=== PATIENT | female | born 1985 | race Caucasian/White ===

== ENCOUNTER → 2017-12-08 14:48 | Outpatient (CLI) | payer OTHER, SELFPAY ==
[2017-12-08 17:42] LABS: hCG Titer Quant., Serum 47 mIU/mL (<9 non-preg)
[2017-12-08 20:39] LABS: T4 Free Direct 1.01 ng/dL (0.76-1.46); Thyroid Stim Hormone (TSH) 1.28 uIU/mL (0.358-3.74)
== END ==
PROVIDERS: Family Provider Nurse Practitioner Family; PCP Nurse Practitioner Family; Visit Provider Obstetrics & Gynecology
DX: E01.0 Iodine-deficiency related diffuse (endemic) goiter (principal); O20.0 Threatened abortion; Z3A.00 Weeks of gestation of pregnancy not specified
CPT/HCPCS: 36415; 84439; 84443; 84702

== ENCOUNTER → 2017-12-10 09:37 | Outpatient (CLI) | payer OTHER, SELFPAY ==
[2017-12-10 10:41] LABS: hCG Titer Quant., Serum 21 mIU/mL (<9 non-preg)
== END ==
PROVIDERS: Family Provider Nurse Practitioner Family; PCP Nurse Practitioner Family; Visit Provider Obstetrics & Gynecology
DX: O20.0 Threatened abortion (principal); Z3A.00 Weeks of gestation of pregnancy not specified
CPT/HCPCS: 36415; 84702; 86850; 86900

== ENCOUNTER 2018-03-02 11:13 | Emergency (ER) | payer MEDICAID, SELFPAY ==
[2018-03-02 11:14] VITALS: BP 141/83; PULSE 97; RESP 16; TEMP 36.9; O2SAT 99; BMI 26.6
--- NOTE | 2018-03-02 11:45 | US_ITS ---
STUDY: FIRST TRIMESTER OBSTETRICAL ULTRASOUND REASON FOR EXAM: Female, 32 years old. 2 day history of a bleeding during . LMP: January 18, 2018. TECHNIQUE: Transvaginal PRIOR ULTRASOUND: None. FINDINGS: There is no demonstrated intrauterine gestational sac. There is no demonstrated yolk sac. The placenta is non-visualized. There is no demonstrated embryo ( pole). The estimated gestation age (EGA) by LMP is 6 weeks, 1 days. The estimated date of delivery (NARCISA) by LMP is October 25, 2018. The uterus measures 8.4 cm x 4.6 times by 3.9 cm. There is no demonstrated uterine fibroid. The cervix is closed. The right ovary measures 2.7 cm x 2.6 cm x 1.6 cm. There is no right ovarian cyst. There is no visualized right adnexal mass or complex lesion. The left ovary measures 2.4 cm x 2.3 cm x 1.5 cm. There is no left ovarian cyst. There is no visualized left adnexal mass or complex lesion. There is minimal fluid in the cul de sac. US/Transvaginal w/Preg US IMPRESSION: No intrauterine gestational sac is seen. Minimal fluid in the cul-de-sac. Correlation with serial beta hCGs recommended for further evaluation. Electronically Signed: Mele Angel MD at 13:26 EDT Tel [phone], Service support ,
--- NOTE | 2018-03-02 11:51 | ED.VISSUMM ---
- ER Visit Summary Date of Service: 03/02/18 Chief Complaint: Vaginal bleeding History of Present Illness: The patient is a 32 F whose last menstrual cycle was January 18. She believes she is approximate 6 weeks . She has not yet seen an [facility] and is scheduled for an appointment today. Patient states she had some mild spotting yesterday with heavier bleeding today. She is passing some clots. She reports waxing and waning cramping in the right lower quadrant over the past week. Patient did have a miscarriage in November when she was approximately 7 weeks along. On review of hospital records blood type is A+. Physical Examination: Vital signs are unremarkable. Patient sitting upright in bed no acute distress. Head neck examination is normal. Heart is regular rate and rhythm. Lung sounds are clear. Abdomen is soft with mild tenderness in the right lower quadrant. There is no guarding or rebound. She has no tenderness over the upper abdomen. Test Results: CBC and chemistry studies are unremarkable. Hemoglobin is 15.6. Urinalysis shows 25-50 white blood cells 25-50 RBCs. Her hCG quant is 16. Transvaginal ultrasound shows no evidence of intrauterine gestational sac. There is minimal fluid in the cul-de-sac. No adnexal masses are noted. Emergency Department Course and Treatment: Patient is given IV fluids here. Test results were discussed with her. At this point I believe she has either miscarried or is earlier in her than anticipated. I spoke with Dr. Dove, on-call for Dr. Luz. We will write an order for an outpatient lab draw in 2 days. Patient is to call the office for follow-up. If she has increased pain or heavier bleeding she is to return for repeat evaluation. Treatment Plan: [] Disposition: Discharge Impression: Threatened AB This note was generated with [employer] dictation software. It may contain incorrect words, spelling, and punctuation that were not noted in review of the chart prior to signing ED Disposition - Plan for ED Patient: Chief Complaint: Vag Bld, Preg Referrals: Leeann Alexander NP-C [Primary Care Provider] -
[2018-03-02 12:02] LABS: Mucous, Urine 0 SEEN /hpf (<or=2+)
[2018-03-02 12:04] LABS: Color, Urine Yellow (Yellow); Glucose, Dipstick Normal (Normal); Ketone-Dipstick Negative (Negative); Leukocyte Esterase-Dipstick 500 /ul (Negative); Nitrite-Dipstick Negative (Negative); Occult Blood-Urine 250 /ul (Negative); Protein-Dipstick 30 mg/dl (Negative); Specific Gravity, Urine 1.005 (1.002-1.030); Urine Bilirubin Dipstick Negative (Negative); Urine Clarity Sl. Cloudy (Clear); Urine Urobilinogen Normal (Normal); Urine pH 6.5 (5.0 - 8.0)
[2018-03-02 12:15] LABS: Red Blood Cells-Urine 25-50 SEEN /hpf (0-5); Squamous Epithelial Cells - UA 0-5 SEEN /hpf (5-10); White Blood Cells 25-50 SEEN /hpf (0-5)
[2018-03-02 12:16] LABS: Bacteria 1+ /hpf (None Seen)
[2018-03-02 12:16] LABS: Absolute Lymphocyte Count 2.06 X10^3/ul (0.83-4.51); Absolute Neutrophil Count 6.3 X10^3/uL (2.0-7.7); Basophil# 0.01 X10^3/uL; Basophil% 0.1 % (0-1); Eosinophil# 0.09 X10^3/uL; Hematocrit 45.6 % (37-47); Hemoglobin 15.6 g/dl (12.0-15.0); Lymphocyte # 2.06 X10^3/ul (4.0); Lymphocyte % 22.5 % (19-41); Mean Corp Hgb Conc 34.2 g/gl (32-36); Mean Corpuscular Volume 93.6 fL (81-99); Mean Platelet Vol. 10.1 fl (6.2-12.0); Monocyte# 0.67 X10^3/uL; Monocyte% 7.3 % (0-10); Platelet Count 255 K/mm3 (150-450); RBC Distribution Width CV 12.7 % (11.6-14.6); RBC Distribution Width SD 43.4 fl (35.1-43.9); Red Blood Count 4.87 M/mm3 (4.2-5.4); White Blood Count 9.1 K/mm3 (4.4-11.0)
[2018-03-02 12:19] LABS: POSITIVE COUNT NO; POSITIVE DIFFERENTIAL NO; POSITIVE MORPHOLOGY NO
[2018-03-02] MEDS: 0.9% Normal Saline 1,000 ML 150 ML IV (12:21)
[2018-03-02 12:28] LABS: Anion Gap 11 (5-15); BUN 7 mg/dL (7-18); BUN/Creat Ratio 8.7 RATIO (10-20); Chloride 103 mmol/L (98-107); Creatinine, Serum 0.81 mg/dL (0.55-1.02); EST Glomerular Filtration Rate 87 mL/min (>60); Est Glom Filt Rate - Afr Amer 105 mL/min (>60); Estimated Creatinine Clearance 93.34 ml/min; Glucose 90 mg/dL (74-106); Potassium 3.6 mmol/L (3.5-5.1); Sodium Level 140 mmol/L (136-145)
[2018-03-02 12:41] LABS: hCG Titer Quant., Serum 16 mIU/mL (<9 non-preg)
--- NOTE | 2018-03-02 14:11 | ED.DEP ---
ED Disposition - Plan for ED Patient: Disposition: Home or Assisted Living Chief Complaint: Vag Bld, Preg Instructions: ED Miscarriage Poss Referrals: Gee Luz MD [STAFF PHYSICIAN] - 1 Week Additional Instructions: Have repeat labs drawn on 03/04 as discussed.
[2018-03-02 14:27] VITALS: BP 128/70; PULSE 70; RESP 18; O2SAT 98
== END 2018-03-02 14:36 | disposition home or self-care (01) ==
PROVIDERS: Emergency Provider Emergency Medicine; Family Provider Nurse Practitioner Family; PCP Nurse Practitioner Family
DX: O20.0 Threatened abortion (principal); Z3A.01 Less than 8 weeks gestation of pregnancy; Z72.0 Tobacco use
CPT/HCPCS: 76817; 80048; 81001; 84702; 85025; 99284; J7030; A4216

== ENCOUNTER → 2018-03-04 07:04 | Outpatient (CLI) | payer MEDICAID, SELFPAY ==
[2018-03-04 07:55] LABS: hCG Titer Quant., Serum 6 mIU/mL (<9 non-preg)
== END ==
PROVIDERS: Family Provider Nurse Practitioner Family; PCP Nurse Practitioner Family; Visit Provider Emergency Medicine
DX: O20.0 Threatened abortion (principal)
CPT/HCPCS: 36415; 84702

== ENCOUNTER → 2018-04-19 11:46 | Outpatient (CLI) | payer MEDICAID, SELFPAY ==
[2018-04-23 12:05] LABS: HPV Reflexed? NOT INDICATED
== END ==
PROVIDERS: Visit Provider Obstetrics & Gynecology
DX: Z12.4 Encounter for screening for malignant neoplasm of cervix (principal); Z12.72 Encounter for screening for malignant neoplasm of vagina
CPT/HCPCS: 88175; G0145

== ENCOUNTER → 2018-09-22 14:52 | Outpatient (CLI) | payer MEDICAID, SELFPAY ==
[2018-09-22 16:13] LABS: hCG Titer Quant., Serum 34 mIU/mL (<9 non-preg)
[2018-09-22 18:01] LABS: Chlamydia Trachomatis by PCR Negative (Negative); Neisserai gonorrhoeae by PCR Negative (Negative); Probe Check PASS; Sample Adequacy Control PASS; Specimen Processing Control PASS
== END ==
PROVIDERS: Visit Provider Obstetrics & Gynecology
DX: Z11.3 Encounter for screening for infections with a predominantly sexual mode of transmission (principal); Z32.01 Encounter for pregnancy test, result positive
CPT/HCPCS: 36415; 84702; 87491; 87591

== ENCOUNTER → 2018-09-24 14:23 | Outpatient (CLI) | payer MEDICAID, SELFPAY ==
[2018-09-24 14:54] LABS: hCG Titer Quant., Serum 18 mIU/mL (<9 non-preg)
== END ==
PROVIDERS: Visit Provider Obstetrics & Gynecology
DX: Z32.01 Encounter for pregnancy test, result positive (principal)
CPT/HCPCS: 36415; 84702

== ENCOUNTER → 2018-10-15 09:13 | Outpatient (CLI) | payer MEDICAID, SELFPAY ==
[2018-10-15 11:17] LABS: hCG Titer Quant., Serum 86 mIU/mL (<9 non-preg)
== END ==
PROVIDERS: Visit Provider Obstetrics & Gynecology
DX: O02.1 Missed abortion (principal)
CPT/HCPCS: 36415; 84702

== ENCOUNTER → 2018-10-18 09:00 | Outpatient (CLI) | payer MEDICAID, SELFPAY ==
[2018-10-18 11:14] LABS: hCG Titer Quant., Serum 105 mIU/mL (<9 non-preg)
== END ==
PROVIDERS: Visit Provider Obstetrics & Gynecology
DX: O02.1 Missed abortion (principal)
CPT/HCPCS: 36415; 84702

== ENCOUNTER → 2018-10-21 09:34 | Outpatient (CLI) | payer MEDICAID, SELFPAY ==
[2018-10-21 12:00] LABS: hCG Titer Quant., Serum 86 mIU/mL (<9 non-preg)
== END ==
PROVIDERS: Visit Provider Obstetrics & Gynecology
DX: O02.1 Missed abortion (principal)
CPT/HCPCS: 36415; 84702

== ENCOUNTER → 2018-10-28 09:51 | Outpatient (CLI) | payer MEDICAID, SELFPAY ==
[2018-10-28 14:07] LABS: hCG Titer Quant., Serum 34 mIU/mL (<9 non-preg)
== END ==
PROVIDERS: Visit Provider Obstetrics & Gynecology
DX: O02.1 Missed abortion (principal)
CPT/HCPCS: 36415; 84702

== ENCOUNTER 2018-11-06 07:08 | Emergency (ER) | payer MEDICAID, SELFPAY ==
[2018-11-06 07:09] VITALS: BP 144/79; PULSE 101; RESP 16; TEMP 36.1; O2SAT 98; BMI 29.7
--- NOTE | 2018-11-06 07:24 | CT_ITS ---
STUDY: CT ABDOMEN AND PELVIS WITHOUT CONTRAST REASON FOR EXAM: Female, 33 years old. Pelvic pressure/right pelvic pain. Miscarriage 1 week ago. History of von Willebrand's bleeding disorder. RADIATION DOSAGE (If Supplied By Facility): CTDIvol = ( 14.93 ) mGy, DLP = ( 790.99 ) mGycm TECHNIQUE: Transaxial images were obtained from the dome of the diaphragm to the symphysis pubis without oral contrast, and without intravenous contrast. Sagittal and coronal images were reconstructed. Individualized dose optimization techniques were used for this CT. COMPARISON: Prior comparison studies are not available for review at this time. FINDINGS: The visualized lung bases are unremarkable. The visualized portions of the heart are within normal limits. Normal liver. The portal vein diameter is 14 mm. The gallbladder is contracted. The common bile duct diameter is 4.5 mm. Normal spleen. Normal pancreas. Normal bilateral adrenal glands. Normal right kidney. Normal left kidney. No hydronephrosis. Normal visualized stomach. Normal small intestine. Normal colon. There is non-visualization of the appendix. Normal abdominal aorta. Normal inferior vena cava. Normal retroperitoneum. Normal urinary bladder. Normal visualized uterus. Endometrial thickness is approximately 8.5 mm. Heterogeneous density in the ovaries consistent with normal follicular cysts. Possible 1.3 cm dominant follicular cyst in the right ovary (series 2 image 146 and 1.3 cm dominant follicular cyst on the left (series 2 image 152). Some mild hyperdensity along the posterior margin of the right adnexa may be volume averaging, but localized hemorrhage or small volume hemoperitoneum difficult to exclude. Normal abdominal wall. Normal osseous structures. CT/Abdomen/Pelvis without Cont IMPRESSION: There are follicular cysts in the bilateral ovaries, with possible dominant follicles as noted. Hyperdensity along the posterior margin of the right adnexa may be volume averaging, but local hemorrhage or very small volume hemoperitoneum difficult to exclude. If clinically suspicious, this could be further characterized with pelvic ultrasound. Electronically Signed: Nikolai Fields MD at 8:29 EST , Service support ,
--- NOTE | 2018-11-06 07:25 | ED.VISSUMM ---
- ER Visit Summary Date of Service: 11/06/18 Chief Complaint: [] Sharp stabbing intermittent right flank pain for 3 days History of Present Illness: The patient is a 33 F [] she reports she is been having a miscarriage for a week she is now not having really any significant vaginal bleeding just intermittent spotting she has been seen by her medical officer psychiatry that process is stable, she indicates for the last 3 days unrelated to the above she believes she is having a sharp intermittent pain to the right flank, nothing makes it better or worse nothing triggers it she has had normal bowel bladder habits. She has no history of kidney stone UTI she does have a very distant history for ovarian cysts vomited once today no fever no cough no anorexia Physical Examination: [] Normal vital signs afebrile see the note General, no distress resting comfortably no real symptoms now HEENT is generally unremarkable The neck is supple no adenopathy Cardiovascular, regular rate and rhythm Lungs, clear bilateral Abdomen, soft nontender, when she gets the pain has a vague pain to the right lower abdomen that radiates up to the right subcostal area the back is unremarkable CVAT normal, lumbar spine T-spine normal Extremities, no clubbing cyanosis or edema Neurologic, awake alert answering questions appropriately moving all 4 extremities Test Results: [] Emergency Department Course and Treatment: [] All the above the differentials rather broad screening labs UA CT pain management Patient screening labs are all generally unremarkable, please see those reports, the CT abdomen showed questionable fluid or fullness to the right adnexa recommend ultrasound, the ultrasound showed what appears to be some fluid to that area otherwise nothing acute see those reports, her quant hCG returned at 15 Her exam is unremarkable remains very stable here I explained all the above with her of explained there is no signs anything acute or life-threatening given that this intermittent sharp stabbing pain we did consider appendicitis that seems unlikely given her lab testing and CT, there is some fluid in the pelvis this could be related to her recent miscarriage or ovarian cyst disease history, at this time she is couple discharge home she will follow with her medical officer psychiatry and other outpatient providers, Shayna for pain and return for change in symptoms, we did give her as a prudent precaution signs to consider for things like appendicitis or bowel obstruction etc. Treatment Plan: [] Disposition: [] Stable Impression: [] Intermittent right-sided abdominal pain This note was generated with [employer] dictation software. It may contain incorrect words, spelling, and punctuation that were not noted in review of the chart prior to signing ED Disposition - Plan for ED Patient: Chief Complaint: Female C/O
[2018-11-06] MEDS: 0.9% Normal Saline 1,000 ML 250 ML IV (07:45)
[2018-11-06] MEDS: Ondansetron 4 MG/2 ML Vial IV (07:45)
[2018-11-06] MEDS: Ketorolac 30 MG/ML Syringe IV (07:45)
[2018-11-06 08:07] LABS: Absolute Lymphocyte Count 2.31 X10^3/ul (0.83-4.51); Absolute Neutrophil Count 6.3 X10^3/uL (2.0-7.7); Basophil# 0.03 X10^3/uL; Basophil% 0.3 % (0-1); Eosinophil# 0.22 X10^3/uL; Eosinophils% 2.3 % (0-5); Hematocrit 44.3 % (37-47); Hemoglobin 14.8 g/dl (12.0-15.0); Lymphocyte # 2.31 X10^3/ul (4.0); Lymphocyte % 24.3 % (19-41); Mean Corp Hgb Conc 33.4 g/gl (32-36); Mean Corpuscular Hgb 31.8 pg (27.0-32.0); Mean Corpuscular Volume 95.3 fL (81-99); Mean Platelet Vol. 10.5 fl (6.2-12.0); Monocyte# 0.63 X10^3/uL; Monocyte% 6.6 % (0-10); Neutrophil % 66.4 % (47-70); Platelet Count 263 K/mm3 (150-450); RBC Distribution Width SD 44.9 fl (35.1-43.9); Red Blood Count 4.65 M/mm3 (4.2-5.4); White Blood Count 9.5 K/mm3 (4.4-11.0)
[2018-11-06 08:13] LABS: POSITIVE COUNT NO; POSITIVE DIFFERENTIAL NO; POSITIVE MORPHOLOGY NO
[2018-11-06 08:15] LABS: Anion Gap 7 (5-15); BUN 11 mg/dL (7-18); BUN/Creat Ratio 13.1 RATIO (10-20); Calcium,Total 8.4 mg/dL (8.5-10.1); Chloride 108 mmol/L (98-107); Creatinine, Serum 0.84 mg/dL (0.55-1.02); EST Glomerular Filtration Rate 83 mL/min (>60); Est Glom Filt Rate - Afr Amer 100 mL/min (>60); Estimated Creatinine Clearance 89.18 ml/min; Glucose 97 mg/dL (74-106); Sodium Level 139 mmol/L (136-145)
[2018-11-06 08:22] LABS: Pregnancy, Serum, hCG Quali. POSITIVE Negative (0-9 Nonpreg)
[2018-11-06 08:23] LABS: Bacteria 0 SEEN /hpf (None Seen); Mucous, Urine 0 SEEN /hpf (<or=2+); Red Blood Cells-Urine 0 SEEN /hpf (0-5); White Blood Cells 0 SEEN /hpf (0-5)
[2018-11-06 08:27] LABS: Color, Urine Yellow (Yellow); Glucose, Dipstick Normal (Normal); Ketone-Dipstick Negative (Negative); Leukocyte Esterase-Dipstick Negative /ul (Negative); Nitrite-Dipstick Negative (Negative); Occult Blood-Urine Negative /ul (Negative); Protein-Dipstick Negative (Negative); Urine Bilirubin Dipstick Negative (Negative); Urine Clarity Clear (Clear); Urine Urobilinogen Normal (Normal)
[2018-11-06 08:27] LABS: hCG Titer Quant., Serum 15 mIU/mL (<9 non-preg)
[2018-11-06 08:34] LABS: Squamous Epithelial Cells - UA 0-5 SEEN /hpf (5-10)
--- NOTE | 2018-11-06 08:46 | US_ITS ---
STUDY: FIRST TRIMESTER OBSTETRICAL ULTRASOUND REASON FOR EXAM: Female, 33 years old. Right pelvic pain. Miscarriage 1 week ago. Question of right periadnexal hemorrhage on CT. LMP: August 12, 2018 TECHNIQUE: Transvaginal TECHNICAL QUALITY: Adequate. PRIOR ULTRASOUND: CT abdomen pelvis 0800 today. FINDINGS: There is no demonstrated intrauterine gestational sac. The estimated gestation age (EGA) by LMP is 12 weeks, 2 days. The estimated date of delivery (NARCISA) by LMP is May 19, 2019. The uterus measures 7.9 x 3.45 x 4.95 cm. The endometrial thickness is 9.1 mm. 7 x 8 x 4 mm rounded, mildly hyperechoic area noted within the posterior endometrium, best seen on images 69 and 73. There is no demonstrated uterine fibroid. The cervix is closed. The right ovary measures 2.4 x 1.7 x 1.3. There is no right ovarian cyst. There is no visualized right adnexal mass or complex lesion. The left ovary measures 3.3 x 2.0 x 2.1. There is no left ovarian cyst. This includes a well-defined, rounded 1.6 x 1.3 x 1.3 cm cyst, consistent with a dominant follicle. There is small to moderate volume free fluid in the cul de sac. US/Transvaginal w/Preg US IMPRESSION: 1. No demonstrated intrauterine , consistent with the history of recent miscarriage. 2. Mildly thickened endometrium is likely physiologic. 8mm rounded area of hyperechogenicity in the posterior endometrium in some views is of uncertain etiology, possibly a focus of residual hemorrhage. 3. 1.6 cm dominant follicle in the left ovary correlating with the finding on CT. Possible dominant follicle suggested in the right ovary on CT is not demonstrated here. 4. Small to moderate volume of simple appearing free fluid in the cul-de-sac. Electronically Signed: Nikolai Fields MD at 11:17 EST , Service support ,
[2018-11-06 09:09] VITALS: BP 111/56; PULSE 57; RESP 16; O2SAT 98
--- NOTE | 2018-11-06 11:27 | ED.DEP ---
ED Disposition - Plan for ED Patient: Chief Complaint: Female C/O Instructions: ED Pelvic Pain UKO, ED Abdominal Pain Unkn Cause Prescriptions: Naproxen [Naprosyn] 500 mg PO BID PRN #20 tab Referrals: Leeann Alexander NP-C [Primary Care Provider] -
[2018-11-06 11:44] VITALS: BP 127/81; PULSE 68; RESP 17; O2SAT 99
--- NOTE | 2018-11-06 11:44 | ED.RN ---
IV DC'ED, CATHETER INTACT, SMALL GAUZE DRESSING PLACED. DISCHARGE INSTRUCTIONS GIVEN TO AND REVIEWED WITH PATIENT, PATIENT DENIES QUESTIONS OR CONCERNS AND VOICES UNDERSTANDING OF DISCHARGE INSTRUCTIONS. PT AMBULATES OUT OF ROOM WITHOUT ISSUE.
--- OUTSIDE RECORDS SUMMARY | 2019-01-10 09:12 | XMS RPT_ITS ---
:1985 Author Organization OHIP Support Name Relationship Address Phone DUNIA, ANNETTE Unavailable [address] + [place] [address] S Unavailable Unavailable Unavailable DUNIA, ANNETTE Unavailable [address] + [place] [address] S Unavailable Unavailable Unavailable DUNIA, ANNETTE Unavailable [address] + [place] [address] S Unavailable Unavailable Unavailable DUNIA, ANNETTE Unavailable [address] + [place] [address] S Unavailable Unavailable Unavailable DUNIA, ANNETTE Unavailable [address] + [place] [address] S Unavailable Unavailable Unavailable DUNIA, ANNETTE Unavailable [address] + [place] [address] S Unavailable Unavailable Unavailable DUNIA, ANNETTE Unavailable [address] + [place] [address] S Unavailable Unavailable Unavailable DUNIA, ANNETTE Unavailable [address] + [place] [address] S Unavailable Unavailable Unavailable DUNIA, ANNETTE Unavailable [address] + [place] [address] S Unavailable Unavailable Unavailable DUNIA, ANNETTE Unavailable [address] + [place] [address] S Unavailable Unavailable Unavailable DUNIA, ANNETTE Unavailable [address] + [place] [address] UE Unavailable Unavailable Unavailable DUNIA, ANNETTE Unavailable [address] + [place] [address] UE Unavailable Unavailable Unavailable DUNIA, ANNETTE Unavailable [address] + [place] [address] UE Unavailable Unavailable Unavailable ANNETTE DUQUE Unavailable [address] + [place] [address] SELF EMPLOYED Unavailable . +. . ., . . Care Team Providers Name Role Phone Gee Luz Attending Unavailable Seals, Gee Attending Unavailable Seals, Gee Attending Unavailable Seals, Gee Attending Unavailable Ines Austin Attending Unavailable Benjamin, Leeann Primary Care Unavailable Marcanthony, Leigha Attending Unavailable GONZALEZ, JOYCE O Referring Unavailable GONZALEZ, JOYCE O Primary Care Unavailable Marcanthony, Leigha Attending Unavailable Marcanthony, Leigha Referring Unavailable Benjamin, Leeann Primary Care Unavailable Marcanthony, Leigha Attending Unavailable Benjamin, Leeann Primary Care Unavailable Marcanthony, Leigha Attending Unavailable GONZALEZ, JOYCE O Referring Unavailable Benjamin, Leeann Primary Care Unavailable Travis, Anel Attending Unavailable Travis, Anel Attending Unavailable Travis, Anel Referring Unavailable Benjamin, Leeann Primary Care Unavailable Seals, Gee Attending Unavailable Seals, Gee Attending Unavailable Seals, Gee Attending Unavailable Benjamin, Leeann L Attending Unavailable Benjamin, Leeann L Primary Care Unavailable Benjamin, Leeann L Admitting Unavailable Benjamin, Leeann L Admitting Unavailable Benjamin, Leeann L Attending Unavailable Benjamin, Leeann L Primary Care Unavailable Tourlas, Сергей Attending Unavailable Benjamin, Leeann L Primary Care Unavailable Tourlas, Сергей Attending Unavailable Benjamin, Leeann L Primary Care Unavailable Tourlas, Сергей Admitting Unavailable Tourlas, Сергей Attending Unavailable Benjamin, Leeann L Primary Care Unavailable Tourlas, Сергей Admitting Unavailable Tourlas, Сергей Attending Unavailable Benjamin, Leeann L Primary Care Unavailable PROBLEMS PROBLEMS DATE TYPE CONDITION / CODE ATTENDING STATUS SOURCE 10/18/2018 Unknown O02.1 - Missed Gee Luz Active [place] / Community O02.1(ICD-10) Hospital Repository 09/24/2018 Unknown Z32.01 - Encounter Gee Luz Active [place] for test, Community result positive / Hospital Z32.01(ICD-10) Repository 09/22/2018 Unknown Z11.3 - Encounter Gee Luz Active [place] for screening for Community infections with a Hospital predominantly Repository sexual mode of transmission / Z11.3(ICD-10) 04/19/2018 Unknown Z12.4 - Encounter Gee Luz Active [place] for screening for Community malignant neoplasm Hospital of cervix / Repository Z12.4(ICD-10) 04/19/2018 Unknown Z12.72 - Encounter Gee Luz Active [place] for screening for Community malignant neoplasm Hospital of vagina / Repository Z12.72(ICD-10) 12/08/2017 Unknown O20.0 - Threatened Marcanthony, Active [place] / Leigha [facility] O20.0(ICD-10) Hospital Repository 12/08/2017 Unknown 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, 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 / Repository E01.0(ICD-10) PROCEDURES PROCEDURES No Procedure Records FoundRESULTS RESULTS EMERGENCY DEPARTMENT Observed: 11/06/2018 Status: F Source: [place] SUMMARY 2:47 PM [facility] Medical Records Department [address] [place] [address] Emergency Department Summary 11/06/18 0725 MR#: [id number] Acct: [id number] Name: DIDI FRAGOSO Rep #: [id number] : 1985 33 From: Ines Austin MD PCP: INGRIS Kaba Status: DEP ER - ER Visit Summary Date of Service: 11/06/18 Chief Complaint: [] Sharp stabbing intermittent right flank pain for 3 days History of Present Illness: The patient is a 33 F [] she reports she is been having a miscarriage for a week she is now not having really any significant vaginal bleeding just intermittent spotting she has been seen by her supply chain coordinator that process is stable, she indicates for the last 3 days unrelated to the above she believes she is having a sharp intermittent pain to the right flank, nothing makes it better or worse nothing triggers it she has had normal bowel bladder habits. She has no history of kidney stone UTI she does have a very distant history for ovarian cysts vomited once today no fever no cough no anorexia Physical Examination: [] Normal vital signs afebrile see the note General, no distress resting comfortably no real symptoms now HEENT is generally unremarkable The neck is supple no adenopathy Cardiovascular, regular rate and rhythm Lungs, clear bilateral Abdomen, soft nontender, when she gets the pain has a vague pain to the right lower abdomen that radiates up to the right subcostal area the back is unremarkable CVAT normal, lumbar spine T-spine normal Extremities, no clubbing cyanosis or edema Neurologic, awake alert answering questions appropriately moving all 4 extremities Test Results: [] Emergency Department Course and Treatment: [] All the above the differentials rather broad screening labs UA CT pain management Patient screening labs are all generally unremarkable, please see those reports, the CT abdomen showed questionable fluid or fullness to the right adnexa recommend ultrasound, the ultrasound showed what appears to be some fluid to that area otherwise nothing acute see those reports, her quant hCG returned at 15 Her exam is unremarkable remains very stable here I explained all the above with her of explained there is no signs anything acute or life-threatening given that this intermittent sharp stabbing pain we did consider appendicitis that seems unlikely given her lab testing and CT, there is some fluid in the pelvis this could be related to her recent miscarriage or ovarian cyst disease history, at this time she is couple discharge home she will follow with her supply chain coordinator and other outpatient providers, Shayna for pain and return for change in symptoms, we did give her as a prudent precaution signs to consider for things like appendicitis or bowel obstruction etc. Treatment Plan: [] Disposition: [] Stable Impression: [] Intermittent right-sided abdominal pain This note was generated with [employer] dictation software. It may contain incorrect words, spelling, and punctuation that were not noted in review of the chart prior to signing ED Disposition - Plan for ED Patient: Chief Complaint: Female C/O What to do if you have Problems For any increased pain, shortness of breath, bleeding, nausea or vomiting, chest pain, or any unexpected problems, contact your Primary Care Provider. Call [facility] ([phone]) or report to the closest Emergency Room. Call 911 if necessary. 11/06/18 9070 <Electronically signed by Ines Austin MD> Date Ines Austin MD Cosigner Signature (If Indicated): Date CC: INGRIS Alexander DISCHARGE INSTRUCTION Observed: 11/06/2018 Status: F Source: [place] 11:28 AM [facility] Medical Records Department [address] [place] [address] Discharge Instruction 11/06/18 1127 MR#: [id number] Acct: [id number] Name: DIDI FRAGOSO Rep #: [id number] : 1985 33 From: Ines Austin MD PCP: INGRIS Kaba Status: REG ER ED Disposition - Plan for ED Patient: Chief Complaint: Female C/O Instructions: ED Pelvic Pain UKO, ED Abdominal Pain Unkn Cause Prescriptions: Naproxen [Naprosyn] 500 mg PO BID PRN #20 tab Referrals: Leeann Alexander NP-C [Primary Care Provider] - What to do if you have Problems For any increased pain, shortness of breath, bleeding, nausea or vomiting, chest pain, or any unexpected problems, contact your Primary Care Provider. Call [facility] ([phone]) or report to the closest Emergency Room. Call 911 if necessary. 11/06/18 1128 <Electronically signed by Ines Austin MD> Date Ines Austin MD Cosigner Signature (If Indicated): Date CC: INGRIS Alexander TRANSVAGINAL W/PREG US Observed: 11/06/2018 Status: F Source: [place] 8:47 AM [facility] Imaging Services [address] [place] [address] Transvaginal w/Preg US MR#: [id number] Acct: [id number] Name: DIDI FRAGOSO Rep #: [id number] : 1985 F 33 From: Lencho Fields MD PCP: INGRIS Kaba Status: REG ER Study: Transvaginal w/Preg US Date of Exam: 11/06/18 Exam# [id number] Ordering Dr: Ines Austin MD STUDY: FIRST TRIMESTER OBSTETRICAL ULTRASOUND REASON FOR EXAM: Female, 33 years old. Right pelvic pain. Miscarriage 1 week ago. Question of right periadnexal hemorrhage on CT. LMP: August 12, 2018 TECHNIQUE: Transvaginal TECHNICAL QUALITY: Adequate. PRIOR ULTRASOUND: CT abdomen pelvis 0800 today. FINDINGS: There is no demonstrated intrauterine gestational sac. The estimated gestation age (EGA) by LMP is 12 weeks, 2 days. The estimated date of delivery (NARCISA) by LMP is May 19, 2019. The uterus measures 7.9 x 3.45 x 4.95 cm. The endometrial thickness is 9.1 mm. 7 x 8 x 4 mm rounded, mildly hyperechoic area noted within the posterior endometrium, best seen on images 69 and 73. There is no demonstrated uterine fibroid. The cervix is closed. The right ovary measures 2.4 x 1.7 x 1.3. There is no right ovarian cyst. There is no visualized right adnexal mass or complex lesion. The left ovary measures 3.3 x 2.0 x 2.1. There is no left ovarian cyst. This includes a well-defined, rounded 1.6 x 1.3 x 1.3 cm cyst, consistent with a dominant follicle. There is small to moderate volume free fluid in the cul de sac. US/Transvaginal w/Preg US IMPRESSION: 1. No demonstrated intrauterine , consistent with the history of recent miscarriage. 2. Mildly thickened endometrium is likely physiologic. 8mm rounded area of hyperechogenicity in the posterior endometrium in some views is of uncertain etiology, possibly a focus of residual hemorrhage. 3. 1.6 cm dominant follicle in the left ovary correlating with the finding on CT. Possible dominant follicle suggested in the right ovary on CT is not demonstrated here. 4. Small to moderate volume of simple appearing free fluid in the cul-de-sac. Electronically Signed: Nikolai Fields MD at 11:17 EST , Service support , CC: MD Rosalee Austin; GATE SERVICES SUPERVISORZahraa Alexander Traffic Assistant: Signed URINALYSIS, COMPLETE Collected: 11/06/2018 Status: F Source: [place] 8:20 AM [facility] Order Comment: How was Urine Obtained? BIOMEDICAL ENGINEERING DIRECTOR TO SPECIFY TYPE CODE TESTS RESULT OUT OF RANGE REFERENCE UNITS LAB L400.3000 Yellow COLOR Normal Yellow LAB L400.3050 Clear Normal CLARITY Clear LAB L400.3200 Normal mg/dl Normal GLUCOSE, UR Normal LAB L400.3300 Negative mg/dL Normal BILIRUBIN URINE Negative LAB L400.3400 Negative mg/dl Normal KETONE UR Negative LAB L400.3465 1.002-1.030 Normal SP.GR. DIPSTX 1.010 LAB L400.3550 5.0 - 8.0 pH UR Normal 6.0 LAB L400.3600 Negative mg/dl PROT Normal DIPSTX Negative LAB L400.3700 Normal mg/dl Normal UROBILI Normal LAB L400.3750 Negative Normal NITRITE UR Negative LAB L400.3780 Negative /ul Normal OCCULT BLOOD-UR Negative LAB L400.3800 Negative /ul LEUK Normal ESTERASE Negative LAB L400.4050 0-5 /hpf WBC 0 Normal SEEN LAB L400.4100 0-5 /hpf 0 Normal RBC-UA SEEN LAB L400.4150 5-10 /hpf SQUAM Normal EPI 0-5 SEEN LAB L400.4300 None Seen /hpf 0 Normal BACTERIA SEEN LAB L400.4350 <or=2+ /hpf 0 Normal MUCUS, URINE SEEN Performed By: #### L400.0001 #### [facility] [address] [place], [address] CBC W/DIFF, AUTOMATED Collected: 11/06/2018 Status: F Source: [place] 7:40 AM [facility] TYPE CODE TESTS RESULT OUT OF RANGE REFERENCE UNITS LAB L100.1000 4.4-11.0 K/mm3 Normal WBC 9.5 LAB L100.1200 4.2-5.4 M/mm3 Normal RBC 4.65 LAB L100.1300 12.0-15.0 g/dl Normal HGB 14.8 LAB L100.1400 37-47 % Normal HCT 44.3 LAB L100.1500 81-99 fL Normal MCV 95.3 LAB L100.1600 27.0-32.0 pg Normal MCH 31.8 LAB L100.1700 32-36 g/gl Normal MCHC 33.4 LAB L100.1810 11.6-14.6 % Normal RDW CV 13.0 LAB L100.1820 35.1-43.9 fl High RDW SD 44.9 LAB L100.1900 150-450 K/mm3 Normal PLT 263 LAB L100.2000 6.2-12.0 fl Normal MPV 10.5 LAB L100.2100 47-70 % Normal NEUT% 66.4 LAB L100.2200 19-41 % Normal LY% 24.3 LAB L100.2300 0-10 % Normal MONO% 6.6 LAB L100.2400 0-5 % Normal EO% 2.3 LAB L100.2500 0-1 % Normal BASO% 0.3 LAB L100.2550 0.0-0.9 % Normal IM GRAN % 0.100 Result Comment: IG% - Immature Granulocytes (promyelocytes, myelocytes and metamyelocytes) > 1% indicates that a LEFT SHIFT is Present. LAB L100.2620 2.0-7.7 X10 3/uL Normal Absolute Neut 6.3 LAB L100.2720 0.83-4.51 X10 3/ul Normal Absolute Lymph 2.31 Performed By: #### L100.0100 #### [facility] [address] [place], [address] BASIC METABOLIC Collected: 11/06/2018 Status: F Source: [place] PROFILE (BMP) 7:40 AM [facility] TYPE CODE TESTS RESULT OUT OF RANGE REFERENCE UNITS LAB L501.0100 74-106 mg/dL Normal GLU 97 Result Comment: Please note revised GLUCOSE reference range effective 2017. LAB L501.1000 7-18 mg/dL Normal BUN 11 LAB L501.1100 0.55-1.02 mg/dL Normal CREAT,SERUM 0.84 Result Comment: The validity of the calculated GFR AND GFRAA in patients over 70 years has not been determined. Clinical correlation is essential. LAB L501.1110 >60 mL/min Normal EST GFR 83 Result Comment: Non- GFR Calc LAB L501.1115 >60 mL/min Normal EST GFR - AA 100 Result Comment: GFR Calc LAB L501.1255 ml/min Normal Estimated CRCL 89.18 LAB L501.1300 10-20 RATIO Normal BUN/CRE 13.1 LAB L501.2200 8.5-10 mg/dL Low .1 CA 8.4 LAB L501.5300 136-14 mmol/L Normal 5 NA 139 LAB L501.5600 3.5-5. mmol/L Normal 1 K 4.0 LAB L501.5900 98-107 mmol/L High CL 108 LAB L501.6100 21.0-3 mmol/L Normal 2.0 CO2 24.0 LAB L501.6200 5-15 Normal GAP 7 Performed By: #### L500.2500 #### [facility] [address] [place], [place], [address] ,SERUM,HCG QUALI. Collected: Status: F Source: [place] 11/06/2018 7:40 AM [facility] TYPE CODE TESTS RESULT OUT OF REFERENCE UNITS RANGE LAB L700.7000 0-9 Nonpreg Negative High HCGSQUAL POSITIVE Result Comment: Critical Result(s) Called at: 08:23:14 11/06/2018 by: Luci Burrell TEST is *POSITIVE* LAB L700.6700 =>Qualitative mIU/mL Normal HCG Qual triggr 15 Performed By: #### L700.6800 #### [facility] [address] [facility] [place], [place], [address] HCG TITER QUANT., Collected: 11/06/2018 Status: F Source: [place] SERUM 7:40 AM [facility] TYPE CODE TESTS RESULT OUT OF RANGE REFERENCE UNITS LAB L700.8000 <9 non-preg mIU/mL High HCG 15 QUANT. Performed By: #### L700.8000 #### [facility] [address] [place], [address] ABDOMEN/PELVIS WITHOUT Observed: 11/06/2018 Status: F Source: [place] CONT 7:25 AM [facility] Imaging Services [address] [place] [address] Abdomen/Pelvis without Cont MR#: [id number] Acct: [id number] Name: DIDI FRAGOSO Rep #: [id number] : 1985 F 33 From: Lencho Fields MD PCP: INGRIS Kaba Status: REG ER Study: Abdomen/Pelvis without Cont Date of Exam: 11/06/18 Exam# [id number] Ordering Dr: Ines Austin MD STUDY: CT ABDOMEN AND PELVIS WITHOUT CONTRAST REASON FOR EXAM: Female, 33 years old. Pelvic pressure/right pelvic pain. Miscarriage 1 week ago. History of von Willebrand's bleeding disorder. RADIATION DOSAGE (If Supplied By Facility): CTDIvol = ( 14.93 ) mGy, DLP = ( 790.99 ) mGycm TECHNIQUE: Transaxial images were obtained from the dome of the diaphragm to the symphysis pubis without oral contrast, and without intravenous contrast. Sagittal and coronal images were reconstructed. Individualized dose optimization techniques were used for this CT. COMPARISON: Prior comparison studies are not available for review at this time. FINDINGS: The visualized lung bases are unremarkable. The visualized portions of the heart are within normal limits. Normal liver. The portal vein diameter is 14 mm. The gallbladder is contracted. The common bile duct diameter is 4.5 mm. Normal spleen. Normal pancreas. Normal bilateral adrenal glands. Normal right kidney. Normal left kidney. No hydronephrosis. Normal visualized stomach. Normal small intestine. Normal colon. There is non-visualization of the appendix. Normal abdominal aorta. Normal inferior vena cava. Normal retroperitoneum. Normal urinary bladder. Normal visualized uterus. Endometrial thickness is approximately 8.5 mm. Heterogeneous density in the ovaries consistent with normal follicular cysts. Possible 1.3 cm dominant follicular cyst in the right ovary (series 2 image 146 and 1.3 cm dominant follicular cyst on the left (series 2 image 152). Some mild hyperdensity along the posterior margin of the right adnexa may be volume averaging, but localized hemorrhage or small volume hemoperitoneum difficult to exclude. Normal abdominal wall. Normal osseous structures. CT/Abdomen/Pelvis without Cont IMPRESSION: There are follicular cysts in the bilateral ovaries, with possible dominant follicles as noted. Hyperdensity along the posterior margin of the right adnexa may be volume averaging, but local hemorrhage or very small volume hemoperitoneum difficult to exclude. If clinically suspicious, this could be further characterized with pelvic ultrasound. Electronically Signed: Nikolai Fields MD at 8:29 EST , Service support , CC: MD Rosalee Austin; INGRIS Alexander Traffic Assistant: Signed HCG TITER QUANT., Collected: 10/28/2018 Status: F Source: [place] SERUM 9:54 AM [facility] TYPE CODE TESTS RESULT OUT OF RANGE REFERENCE UNITS LAB L700.8000 <9 non-preg mIU/mL High HCG 34 QUANT. Performed By: #### L700.8000 #### [facility] [address] [place], [place], [address] HCG TITER QUANT., Collected: 10/21/2018 Status: F Source: [place] SERUM 9:41 AM [facility] TYPE CODE TESTS RESULT OUT OF RANGE REFERENCE UNITS LAB L700.8000 <9 non-preg mIU/mL High HCG 86 QUANT. Performed By: #### L700.8000 #### [facility] [address] [place], [place], [address] HCG TITER QUANT., Collected: 10/18/2018 Status: F Source: [place] SERUM 9:02 AM [facility] TYPE CODE TESTS RESULT OUT OF RANGE REFERENCE UNITS LAB L700.8000 <9 non-preg mIU/mL High HCG 105 QUANT. Performed By: #### L700.8000 #### [facility] [address] [place], [address] HCG TITER QUANT., Collected: 10/15/2018 Status: F Source: [place] SERUM 9:17 AM [facility] TYPE CODE TESTS RESULT OUT OF RANGE REFERENCE UNITS LAB L700.8000 <9 non-preg mIU/mL High HCG 86 QUANT. Performed By: #### L700.8000 #### [facility] [address] [place], [address] HCG TITER QUANT., Collected: 09/24/2018 Status: F Source: [place] SERUM 2:25 PM [facility] TYPE CODE TESTS RESULT OUT OF RANGE REFERENCE UNITS LAB L700.8000 <9 non-preg mIU/mL High HCG 18 QUANT. Performed By: #### L700.8000 #### [facility] [place], [address] HCG TITER QUANT., Collected: 09/22/2018 Status: F Source: [place] SERUM 2:53 PM [facility] TYPE CODE TESTS RESULT OUT OF RANGE REFERENCE UNITS LAB L700.8000 <9 non-preg mIU/mL High HCG 34 QUANT. Performed By: #### L700.8000 #### [facility] [place], [address] CT/NG [facility] BY PCR Collected: 09/22/2018 Status: F Source: [place] 2:40 PM [facility] TYPE CODE TESTS RESULT OUT OF RANGE REFERENCE UNITS LAB L8200.2100 Negative Normal Chlam Negative Trac PCR LAB L8200.2200 Negative Normal NG by Negative PCR Performed By: #### L8200.2000 #### [facility] [address] [place], [address] XR FOOT 3+ VIEWS Observed: 05/25/2018 Status: F Source: [place] LEFT 10:08 AM [facility] REPOSITORY Exam Date/Time: 05/25/2018 10:12 EDT Reason for Exam: left lateral foot pain;Other (please specify) Report STUDY: XR Foot 3+ Views Left; 05/25/2018 10:12 am INDICATION: Other (please specify). COMPARISON: None. ACCESSION NUMBER(S): [id number] ORDERING CLINICIAN: Сергей Serrano TECHNIQUE: Three views of the left foot including AP, oblique and lateral projections were obtained. FINDINGS: There is no radiographic evidence of acute fracture or dislocation identified. The joint spaces are well preserved throughout without significant degenerative changes. IMPRESSION: 1. No acute fracture or dislocation identified. FINAL REPORT Dictated: 05/25/2018 1:00 pm Miles Gray MD Signed (Electronic Signature): 05/25/2018 1:00 pm Signed by: Miles Gray MD Technologist: [facility] PAP I-G W/RFX HRHPV Collected: 04/19/2018 Status: F Source: [place] 9:25 AM [facility] Order Comment: CYTOLOGY INFORMATION: - CLINICAL INFORMATION: - DATE LMP/MENOPAUSE: 04/05/18 LMP - COLLECTION VIAL: Thin Prep Vial - FINISHER HAND SOURCE: CERVICAL/ENDOCERVICAL - COLLECTION TECHNIQUE: BRUSH/SPATULA Specimen Comment: [id number] Specimen Comment: No. of containers..01 ThinPrep Vial TYPE CODE TESTS RESULT OUT OF RANGE REFERENCE UNITS LAB L7400.0800 . Normal DIAGN Comment Result Comment: NEGATIVE FOR INTRAEPITHELIAL LESION AND MALIGNANCY. PREDOMINANCE OF COCCOBACILLI CONSISTENT WITH SHIFT IN VAGINAL TOSHA IS PRESENT. LAB L7400.0900 . Normal ADEQ Comment Result Comment: Satisfactory for evaluation. Endocervical and/or squamous metaplastic cells (endocervical component) are present. LAB L7400.1400 . Normal PERFORM Comment Result Comment: Whitley Brumfield, Biology Laboratory Assistant (ASCP) LAB L7400.1720 . Normal Path prov. Comment ICD9 Result Comment: R87.5 LAB L7400.2575 . Normal TEST METHOD Comment Result Comment: This liquid based ThinPrep(R) pap test was screened with the use of an image guided system. LAB L7400.2600 . Normal . COMM LAB L7400.2700 . Normal PAPSMR Comment Result Comment: The Pap smear is a screening test designed to aid in the detection of premalignant and malignant conditions of the uterine cervix. It is not a diagnostic procedure and should not be used as the sole means of detecting cervical cancer. Both false-positive and false-negative reports do occur. LAB L7400.2800 . Normal HPV RFLX Comment Result Comment: The HPV DNA reflex criteria were not met with this specimen result therefore, no HPV testing was performed. Performed at: - [facility]26 Phillips [address]Christopher [address] [id number] Absence Management Consultant: Raisa Reid MD, Phone: [phone] Performed By: #### L7400.0350 #### [facility] (refer to report for specific site) refer to report for address and phone number EMERGENCY DEPARTMENT Observed: 03/04/2018 Status: F Source: [place] SUMMARY 8:16 AM [facility] Medical Records Department [address] [place] [address] Emergency Department Summary 03/02/18 1151 MR#: [id number] Acct: [id number] Name: DIDI FRAGOSO Rep #: [id number] : 1985 32 From: Anel Travis MD PCP: INGRIS Kaba Status: DEP ER - ER Visit Summary Date of Service: 03/02/18 Chief Complaint: Vaginal bleeding History of Present Illness: The patient is a 32 F whose last menstrual cycle was January 18. She believes she is approximate 6 weeks . She has not yet seen an STEAMTABLE ATTENDANT RAILROAD and is scheduled for an appointment today. Patient states she had some mild spotting yesterday with heavier bleeding today. She is passing some clots. She reports waxing and waning cramping in the right lower quadrant over the past week. Patient did have a miscarriage in November when she was approximately 7 weeks along. On review of hospital records blood type is A+. Physical Examination: Vital signs are unremarkable. Patient sitting upright in bed no acute distress. Head neck examination is normal. Heart is regular rate and rhythm. Lung sounds are clear. Abdomen is soft with mild tenderness in the right lower quadrant. There is no guarding or rebound. She has no tenderness over the upper abdomen. Test Results: CBC and chemistry studies are unremarkable. Hemoglobin is 15.6. Urinalysis shows 25-50 white blood cells 25-50 RBCs. Her hCG quant is 16. Transvaginal ultrasound shows no evidence of intrauterine gestational sac. There is minimal fluid in the cul-de-sac. No adnexal masses are noted. Emergency Department Course and Treatment: Patient is given IV fluids here. Test results were discussed with her. At this point I believe she has either miscarried or is earlier in her than anticipated. I spoke with Dr. Dove, on- call for Dr. Luz. We will write an order for an outpatient lab draw in 2 days. Patient is to call the office for follow-up. If she has increased pain or heavier bleeding she is to return for repeat evaluation. Treatment Plan: [] Disposition: Discharge Impression: Threatened AB This note was generated with [employer] dictation software. It may contain incorrect words, spelling, and punctuation that were not noted in review of the chart prior to signing ED Disposition - Plan for ED Patient: Chief Complaint: Vag Bld, Preg Referrals: Leeann Alexander, INGRIS [Primary Care Provider] - What to do if you have Problems For any increased pain, shortness of breath, bleeding, nausea or vomiting, chest pain, or any unexpected problems, contact your Primary Care Provider. Call [facility] ([phone]) or report to the closest Emergency Room. Call 911 if necessary. 03/04/18 0816 <Electronically signed by Anel Travis MD> Date Anel Travis MD Cosigner Signature (If Indicated): Date CC: INGRIS Alexander HCG TITER QUANT., Collected: 03/04/2018 Status: F Source: [place] SERUM 7:06 AM [facility] Order Comment: SEND RESULTS TO DR LUZ TYPE CODE TESTS RESULT OUT OF RANGE REFERENCE UNITS LAB L700.8000 <9 non-preg mIU/mL Normal HCG 6 QUANT. Performed By: #### L700.8000 #### [facility] [address] [place], [address] DISCHARGE INSTRUCTION Observed: 03/02/2018 Status: F Source: [place] 2:12 PM [facility] Medical Records Department [address] [place] [address] Discharge Instruction 03/02/18 1411 MR#: [id number] Acct: [id number] Name: DIDI FRAGOSO Rep #: [id number] : 1985 32 From: Anel Travis MD PCP: INGRIS Kaba Status: REG ER ED Disposition - Plan for ED Patient: Disposition: Home or Assisted Living Chief Complaint: Vag Bld, Preg Instructions: ED Miscarriage Poss Referrals: Gee Luz MD [STAFF PHYSICIAN] - 1 Week Additional Instructions: Have repeat labs drawn on 03/04 as discussed. What to do if you have Problems For any increased pain, shortness of breath, bleeding, nausea or vomiting, chest pain, or any unexpected problems, contact your Primary Care Provider. Call [facility] ([phone]) or report to the closest Emergency Room. Call 911 if necessary. 03/02/18 1412 <Electronically signed by Anel Travis MD> Date Anel Travis MD Cosigner Signature (If Indicated): Date CC: INGRIS Alexander CBC W/DIFF, AUTOMATED Collected: 03/02/2018 Status: F Source: [place] 12:01 PM [facility] TYPE CODE TESTS RESULT OUT OF RANGE REFERENCE UNITS LAB L100.1000 4.4-11.0 K/mm3 Normal WBC 9.1 LAB L100.1200 4.2-5.4 M/mm3 Normal RBC 4.87 LAB L100.1300 12.0-15.0 g/dl High HGB 15.6 LAB L100.1400 37-47 % Normal HCT 45.6 LAB L100.1500 81-99 fL Normal MCV 93.6 LAB L100.1600 27.0-32.0 pg Normal MCH 32.0 LAB L100.1700 32-36 g/gl Normal MCHC 34.2 LAB L100.1810 11.6-14.6 % Normal RDW CV 12.7 LAB L100.1820 35.1-43.9 fl Normal RDW SD 43.4 LAB L100.1900 150-450 K/mm3 Normal PLT 255 LAB L100.2000 6.2-12.0 fl Normal MPV 10.1 LAB L100.2100 47-70 % Normal NEUT% 69.0 LAB L100.2200 19-41 % Normal LY% 22.5 LAB L100.2300 0-10 % Normal MONO% 7.3 LAB L100.2400 0-5 % Normal EO% 1.0 LAB L100.2500 0-1 % Normal BASO% 0.1 LAB L100.2550 0.0-0.9 % Normal IM GRAN % 0.100 Result Comment: IG% - Immature Granulocytes (promyelocytes, myelocytes and metamyelocytes) > 1% indicates that a LEFT SHIFT is Present. LAB L100.2620 2.0-7.7 X10 3/uL Normal Absolute Neut 6.3 LAB L100.2720 0.83-4.51 X10 3/ul Normal Absolute Lymph 2.06 Performed By: #### L100.0100 #### [facility] [address] [place] [place], [address] BASIC METABOLIC Collected: 03/02/2018 Status: F Source: [place] PROFILE ([facility]) 12:01 PM [facility] TYPE CODE TESTS RESULT OUT OF RANGE REFERENCE UNITS LAB L501.0100 74-106 mg/dL Normal GLU 90 Result Comment: Please note revised GLUCOSE reference range effective 2017. LAB L501.1000 7-18 mg/dL Normal BUN 7 LAB L501.1100 0.55-1.02 mg/dL Normal CREAT,SERUM 0.81 Result Comment: The validity of the calculated GFR AND GFRAA in patients over 70 years has not been determined. Clinical correlation is essential. LAB L501.1110 >60 mL/min Normal EST GFR 87 Result Comment: Non- GFR Calc LAB L501.1115 >60 mL/min Normal EST GFR - AA 105 Result Comment: GFR Calc LAB L501.1255 ml/min Normal Estimated CRCL 93.34 LAB L501.1300 10-20 RATIO Low BUN/CRE 8.7 LAB L501.2200 8.5-10 mg/dL Normal .1 CA 9.0 LAB L501.5300 136-14 mmol/L Normal 5 NA 140 LAB L501.5600 3.5-5. mmol/L Normal 1 K 3.6 LAB L501.5900 98-107 mmol/L Normal CL 103 LAB L501.6100 21.0-3 mmol/L Normal 2.0 CO2 26.0 LAB L501.6200 5-15 Normal GAP 11 Performed By: #### L500.2500 #### [facility] [address] [place], [address] HCG TITER QUANT., Collected: 03/02/2018 Status: F Source: [place] SERUM 12:01 PM [facility] TYPE CODE TESTS RESULT OUT OF RANGE REFERENCE UNITS LAB L700.8000 <9 non-preg mIU/mL High HCG 16 QUANT. Performed By: #### L700.8000 #### [facility] [address] [place], [address] URINALYSIS, COMPLETE Collected: 03/02/2018 Status: F Source: [place] 11:50 AM [facility] Order Comment: How was Urine Obtained? CLEAN CATCH TYPE CODE TESTS RESULT OUT OF RANGE REFERENCE UNITS LAB L400.3000 Yellow COLOR Normal Yellow LAB L400.3050 Clear Normal CLARITY Sl. Cloudy LAB L400.3200 Normal mg/dl Normal GLUCOSE, UR Normal LAB L400.3300 Negative mg/dL Normal BILIRUBIN URINE Negative LAB L400.3400 Negative mg/dl Normal KETONE UR Negative LAB L400.3465 1.002-1.030 Normal SP.GR. DIPSTX 1.005 LAB L400.3550 5.0 - 8.0 pH UR Normal 6.5 LAB L400.3600 Negative mg/dl High PROT 30 DIPSTX LAB L400.3700 Normal mg/dl Normal UROBILI Normal LAB L400.3750 Negative Normal NITRITE UR Negative LAB L400.3780 Negative /ul High OCCULT BLOOD-UR 250 LAB L400.3800 Negative /ul High LEUK ESTERASE 500 LAB L400.4050 0-5 /hpf WBC Normal 25-50 SEEN LAB L400.4100 0-5 /hpf Normal RBC-UA 25-50 SEEN LAB L400.4150 5-10 /hpf SQUAM Normal EPI 0-5 SEEN LAB L400.4300 None Seen /hpf 1+ Normal BACTERIA LAB L400.4350 <or=2+ /hpf 0 Normal MUCUS, URINE SEEN Performed By: #### L400.0001 #### [facility] [address] [facility] [place], [address] TRANSVAGINAL W/PREG US Observed: 03/02/2018 Status: F Source: [place] 11:47 AM [facility] Imaging Services [address] [facility] [place] [address] Transvaginal w/Preg US MR#: [id number] Acct: [id number] Name: DIDI FRAGOSO Rep #: [id number] : 1985 F 32 From: Mele Angel MD PCP: INGRIS Kaba Status: REG ER Study: Transvaginal w/Preg US Date of Exam: 03/02/18 Exam# [id number] Ordering Dr: Anel Travis MD STUDY: FIRST TRIMESTER OBSTETRICAL ULTRASOUND REASON FOR EXAM: Female, 32 years old. 2 day history of a bleeding during . LMP: January 18, 2018. TECHNIQUE: Transvaginal PRIOR ULTRASOUND: None. FINDINGS: There is no demonstrated intrauterine gestational sac. There is no demonstrated yolk sac. The placenta is non-visualized. There is no demonstrated embryo ( pole). The estimated gestation age (EGA) by LMP is 6 weeks, 1 days. The estimated date of delivery (NARCISA) by LMP is October 25, 2018. The uterus measures 8.4 cm x 4.6 times by 3.9 cm. There is no demonstrated uterine fibroid. The cervix is closed. The right ovary measures 2.7 cm x 2.6 cm x 1.6 cm. There is no right ovarian cyst. There is no visualized right adnexal mass or complex lesion. The left ovary measures 2.4 cm x 2.3 cm x 1.5 cm. There is no left ovarian cyst. There is no visualized left adnexal mass or complex lesion. There is minimal fluid in the cul de sac. US/Transvaginal w/Preg US IMPRESSION: No intrauterine gestational sac is seen. Minimal fluid in the cul-de-sac. Correlation with serial beta hCGs recommended for further evaluation. Electronically Signed: Mele Angel MD at 13:26 EDT Tel [phone], Service support , CC: INGRIS Alexander; Anel Travis MD Traffic Assistant: Signed STEAMTABLE ATTENDANT RAILROAD OFFICE VISIT Observed: 12/11/2017 Status: F Source: [place] REPORT 5:35 AM [facility] [address] [place] [address] OFFICE VISIT Date of Service: 12/08/17 MR#: [id number] Acct: [id number] Name: DIDI FRAGOSO Rep #: [id number] : 1985 Provider: Leigha Subramanian MD Age/Sex: 32/F Location: [facility] Status: Signed Intake Vital Signs12/08/17 Height 5 ft 6 in 12/08/17 Weight: 176 lb 2 oz 12/08/17 Body Mass Index (BMI) 28.4 12/08/17 Blood Pressure 128/74 Intake Visit Reasons: Possible MC Chief Complaint: Possible MC Erp Business Analyst Required: No Is patient in pain?: Yes Allergies No Known Allergies Allergy (Verified 12/08/17 14:19) Medications vitamin,calcium,daywhqvy-pghc-amznt acid tablet 1 tab PO QDAY 12/08/17 [History Confirmed 12/08/17] Is last menstrual period known: Yes Last Menstral Period: 10/22/17 Post menopausal: No Patient : Yes : No PFSH Medical History Abnormal Pap smear of cervix (Acute) Family History Mother Diabetes Grandmother Breast cancer Father Colon cancer Social History Smoking Status: Current every day smoker alcohol intake: never substance use type: does not use caffeine: No frequency: 1-2 times per week seatbelt use: always do you feel safe at home: Yes 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 she has had signfiicant bleedign today and some cramping. she had a positive test two weeks ago. she denies any dizziness or fevers. Female Reproductive History Last Menstral Period: 10/22/17 Pregancy History 1 Elective abortions Hx Para Spontaneous abortions ROS Const Constitutional: Denies poor appetite, headache(s), fever(s), increased appetite, weight gain, weight loss or fatigue Cardio Card: Denies chest pain Resp Resp: Denies dyspnea or cough GI GI: Reports as per HPI; denies vomiting, nausea, abdominal pain or constipation : Reports as per HPI; denies urinary urgency, vaginal discharge, urinary frequency, vaginal itching, vaginal odor, vaginal dryness, urinary incontinence, urinary hesitancy, difficulty urinating, painful urination or nipple discharge Skin Skin/Breast: Denies breast lump, breast pain, breast skin changes, nipple discharge or change in hair Exam Const General: cooperative, healthy appearing, comfortable, no acute distress, well developed Nutritional Appearance: average body habitus Orientation: alert [facility] Head: normal to inspection, normocephalic Neck Neck: normal visual inspection, trachea midline Thyroid: diffusely enlarged Resp Effort AND Inspection: normal respiratory effort GI Inspection: normal to inspection, non-distended Palpation: soft, no hepatosplenomegaly General: bladder normal to palpation External Female Exam: normal external appearance, normal appearance of the urethra Urethra: normal appearance of the urethra, normal palpation, no discharge Speculum Exam - Vagina: normal appearance of the vagina, normal vaginal discharge Speculum Exam - Cervix: normal appearance of the cervix, nontender Bimanual Exam- Vagina AND Uterus: bladder normal to palpation, No cervical tenderness, normal bimanual exam, uterine size normal, uterine shape normal, uterine mobility normal, uterine consistency normal, normal cervical palpation, uterus non-tender Bimanual Exam- Adnexa, other: normal adnexae, adnexae mobile, no adnexal masses, pelvic support normal Pelvic Support: normal Skin General: no rashes or lesions noted Assessment AND Plan Problems 1. Thyromegaly E01.0 2. Threatened in first trimester O20.0 Plan reviewed miscarriage precautions- suspicious for this. ordered blood type and serial hcgs. fu based on this. Orders Orders: Medications Discontinued: oxycodone-acetaminophen 5-325 mg Disco1 - 2 tabs PO Q4H PRN PRN Pain Shawnee Linares ntinued Reason: Order Completed Coding Level of Care Code Off vis,new,level 3 Diagnoses Thyromegaly E01.0 Threatened in first trimester O20.0 12/11/17 0535 <Electronically signed by Leigha Subramanian MD> Date Leigha Subramanian MD Cosigner Signature: Date (if applicable) CC: HCG TITER QUANT., Collected: 12/10/2017 Status: F Source: [place] SERUM 9:39 AM [facility] TYPE CODE TESTS RESULT OUT OF RANGE REFERENCE UNITS LAB L700.8000 <9 non-preg mIU/mL High HCG 21 QUANT. Performed By: #### L700.8000, B101.7450 #### [facility] [address] [place], [place], [id number] TYPE AND SCREEN Collected: 12/10/2017 Status: F Source: [place] 9:39 AM [facility] Order Comment: Reason for Type AND Screen/Red Cells: TYPE CODE TESTS RESULT OUT OF RANGE REFERENCE UNITS LAB B10.0800 A Normal BLOOD TYPE GEL POSITIVE LAB B100.4000 Normal Antibody NEGATIVE Screen Performed By: #### L700.8000, B101.7450 #### [facility] [address] [place], [address] HCG TITER QUANT., Collected: 12/08/2017 Status: F Source: [place] 3:10 PM [facility] TYPE CODE TESTS RESULT OUT OF RANGE REFERENCE UNITS LAB L700.8000 <9 non-preg mIU/mL High HCG 47 QUANT. Performed By: #### L700.8000 #### [facility] [address] [place], [address] THYROID STIM HORMONE Collected: 12/08/2017 Status: F Source: [place] (TSH) 3:10 PM [facility] TYPE CODE TESTS RESULT OUT OF RANGE REFERENCE UNITS LAB L501.9520 0.358-3.74 uIU/mL Normal TSH 1.28 Performed By: #### L501.9520, L506.0400 #### [facility] [address] [place], [address] T4 FREE DIRECT Collected: 12/08/2017 Status: F Source: [place] 3:10 PM [facility] TYPE CODE TESTS RESULT OUT OF RANGE REFERENCE UNITS LAB L506.0400 0.76-1.46 ng/dL Normal T4 FREE 1.01 DIRECT Performed By: #### L501.9520, L506.0400 #### [facility] [address] [place], [address] BHCG QUAL Collected: 11/30/2017 Status: F Source: [place] 9:42 AM [facility] REPOSITORY TYPE CODE TESTS RESULT OUT OF RANGE REFERENCE UNITS LAB 10227478(LO Negative INC) Normal Beta Positive hCG Ql Performed By: #### [id number] #### [facility] Chemistry Manual [address] [address] ALLERGIES ALLERGIES DATE TYPE / CODE NAME / CODE REACTION SEVERITY SOURCE 11/06/2018 Drug No Known Unknown [place] Allergy/416 Allergies/[id number] [facility] 610141(SNOM 388(RXNORM) Hospital ED CT) Repository Drug/398385 No Known Judaism 003([facility]) Allergies System Repository ENCOUNTERS ENCOUNTERS ADMIT/DISCHARGE ACCOUNT NUMBER ADMITTING ENCOUNTER LOCATION SOURCE CLASS 11/06/2018/ [id number] Emergency [address] ding:ED Repository 10/28/2018 [id number] Ambulatory [facility] ding:WOBLAB Repository 10/21/2018 [id number] Ambulatory [facility] ding:WOBLAB Repository 10/18/2018 [id number] Ambulatory [facility] ding:WOBLAB Repository 10/15/2018 [id number] Ambulatory [facility] ding:WOBLAB Repository 09/24/2018 [id number] Ambulatory [facility] ding:WOBLAB Repository 09/22/2018 [id number] Ambulatory [facility] ding:WOBLAB Repository 06/14/2018/ [id number] [address] ding: CONEXANCE MD System Repository 06/14/2018/ [id number] [address] ding:[facility]am[facility] System racRoom: Repository Room 1 06/14/[id number] Repository 05/25/2018/ [id number] [address] ding: CONEXANCE MD System Repository 05/25/2018/ [id number] [address] ding:[facility]amP System racRoom: Repository Room 1 05/25/[id number] Repository 04/19/2018 [id number] [facility] ding:LABSPEC Repository 03/04/2018 [id number] Ambulatory [facility] ding:LAB Repository 03/02/2018/ [id number] Emergency [place] [address] [facility] ding:ED Repository 12/15/2017 [id number] Ambulatory BMSBuilding: [place] BMS.[facility] Repository 12/10/2017 [id number] Ambulatory [facility] ding:LAB Repository 12/08/2017 [id number] Ambulatory [facility] ding:LAB Repository 12/08/2017/ [id number] Ambulatory BMSBuilding: [place] 018 BMS.[facility] Repository 11/30/2017/ [id number] Leeann Alexander Ambulatory [address] ding:[facility] Repository 11/30/2017/ [id number] Leeann Alexander Ambulatory [address] ding:[facility] System racRoom: Repository Room 2 PAYERS PAYERS ENCOUNTER GUARANTOR PAYER SUBSCRIBER SOURCE 11/06/2018 DIDI Feliciano Primary Insurance:[facility] DIDI Feliciano [place] [id number] [facility]: [facility] Number: [id number] [id number] Repository 215[address]Qyn: (330) Date:9923-70-58LM [phone] () [address] [place] [address] 11796CS: 11/06/2018 Secondary NOT GIVENUNK [place] Insurance:SELF PAY [facility] Number: Effective Repository Date:2018-11-06 10/28/2018 DIDI Feliciano Primary Insurance:[facility] DIDI Vanegasoster [id number] [facility] Number: [id number], [place] [id number] Repository [address]Omy: (330) Date:1803-25-10JO [phone] () [address] [place] [address] 25913OU: 10/28/2018 Secondary NOT GIVENUNK [place] Insurance:SELF PAY [facility] Number: Effective Repository Date:2018-10-28 10/21/2018 DIDI E Primary Insurance:[facility] DIDI E [place] [id number] [facility] PLANPolicy BARKERDOB: [facility] Number: [id number], [place] [id number] Repository [address]Hke: (330) Date:1292-20-52WA [phone] () [address] [place] [address] 36145FG: 10/21/2018 Secondary NOT GIVENUNK [place] Insurance:SELF PAY [facility] Number: Effective Repository Date:2018-10-21 10/18/2018 DIDI E Primary Insurance:[facility] DIDI E [place] [id number] [facility] PLANPolicy BARKERDOB: [facility] Number: [id number], [place] [id number] Repository 968[address]Ffc: ([phone]) Date:8059-41-50GU [phone] () [address] [place] [address] 83839LK: 10/18/2018 Secondary NOT GIVENUNK [place] Insurance:SELF PAY [facility] Number: Effective Repository Date:2018-10-18 10/15/2018 DIDI E Primary Insurance:[facility] DIDI E [place] [id number] [facility] PLANPolicy DBERDOB: [facility] Number: [id number], [place] [id number] Repository 58[address]Ydf: (330) Date:1951-92-35YP [phone] () [address] [place] [address] 03267OJ: 10/15/2018 Secondary NOT GIVENUNK [place] Insurance:SELF PAY [facility] Number: Effective Repository Date:2018-10-15 09/24/2018 DIDI E Primary Insurance:[facility] DIDI E [place] [id number] [facility] BARKERDOB: [facility] Number: [id number], [place] [id number] Repository 370[address]Zkq: (330) Date:2908-47-96JC [phone] () [address] [place] [address] 87247QP: 09/24/2018 Secondary NOT GIVENUNK [place] Insurance:SELF PAY [facility] Number: Effective Repository Date:2018-09-24 09/22/2018 DIDI E Primary Insurance:[facility] DIDI E [place] [id number] [facility] Number: [id number], [place] [id number] Repository [address]Tvx: (330) Date:1523-66-10ZP [phone] (HP) [address] [place] [address] 67949AR: 09/22/2018 Secondary NOT GIVENUNK [place] Insurance:SELF PAY [facility] Number: Effective Repository Date:2018-09-22 06/14/2018 DIDI E Primary DIDI E Judaism BARKERDOB: [facility] [id number] [facility] Number: Effective [address] [place], [place] Date:2018-06-14 - [place] [address]Yeo: [id number] [phone]: Name:CD:[id number] BOX (HP) [address] [place] [address] ()Tel: [phone]: () [phone] 06/14/2018 DIDI E Primary Insurance:[facility] DIDI E Judaism BARKDOB: [facility] [id number] [facility] Number: Effective [address] [place], [place] Date:2018-05-25 - [place] [address]Nli: [id number] [phone]: Name:CD:[id number].O. (HP) [address] [place] [address] ()Tel: [phone]: (WP) [phone] 06/14/2018 [facility]: [facility] [id number] [facility] Number: [address] [place], [place] [id number] [place], [place] [id number]: Date:Plan Name:[facility] [id number]: [address] [place] [address] (HP) [phone]: [phone]) (HP) [phone] 05/25/2018 [facility]: [facility] [id number] [facility] Number: Effective 4 [facility] [place] Date:2018-05-25 - RDWNOR-[place] [address]Onc: [id number]: Name:CD:[id number] BOX (HP) [address] [place] [address] (HP)Tel: [phone]: (WP) [phone] 05/25/2018 [facility] Insurance:[address] [place], [place] [address]B: [facility]: [facility] [id number] System [facility] Number: Effective 4 [facility] [place] Date:2018-05-25 [place] [address]Cyt: [id number] [phone]: Name:CD:[id number].O. (HP) [address] [place] [address] ()Tel: [phone]: (WP) [phone] 05/25/2018 DIDI Primary [facility]: Insurance:[facility]: [facility] [id number] [facility] [id number] [facility] Number: 4 [place], [place] [id number] [place], [place] [id number]: Date:Plan Name:[facility] [id number]: [address] [place] [address] () [id number]: [phone] 04/19/2018 DIDI E Primary Insurance:[facility] DIDI E [place] [id number] [facility] Number: [id number] [place], [place] [id number] Repository [address]Urr: [phone]) Date:3601-15-29IT [address] [phone] () [address] [place] [address] 6[address]UT: 04/19/2018 Secondary NOT GIVENUNK [place] Insurance:SELF PAY [facility] Number: Effective Repository Date:2018-04-19 03/04/2018 DIDI E Primary Insurance:[facility] DIDI Braden Vanegas[place] [id number] [facility] Number: [id number] [place], [place] [id number] Repository 395[address]Yyv: ([phone]) Date:1663-27-40TX [phone] () [address] [place] [address] 16873CI: 03/04/2018 Secondary NOT GIVENUNK [place] Insurance:SELF PAY [facility] Number: Effective Repository Date:2018-03-04 03/02/2018 DIDI E Primary Insurance:[facility] DIDI E [place] [id number] [facility] Number: [id number] [place], [place] [id number] Repository [address]Itc: (330) Date:4914-52-84NG [phone] () [address] [place] [address] 189[address]PF: 03/02/2018 Secondary NOT GIVENUNK [place] Insurance:SELF PAY [facility] Number: Effective Repository Date:2018-03-02 12/15/2017 [facility] Rick [id number] Insurance:UNITED TH BARKERDOB: [address] [id number] [facility] [place] Number: Repository [address]Kog: 330 [id number] [phone] () Date:3631-81-73MS [facility] [place] [address]CZ: 12/15/2017 Secondary NOT GIVENUNK [place] Insurance:SELF PAY [facility] Number: Effective Repository Date:2017-11-30 12/10/2017 [facility] [place] [id number] Insurance:UNITED TH BARKERDOB: [address] [id number] Medical [facility], [place] Number: Repository [address]Pvd: 330 [id number] [phone] () Date:0339-47-44KI [facility] [id number] [place] [address]SD: 12/10/2017 Secondary NOT GIVENUNK [place] Insurance:SELF PAY [facility] Number: Effective Repository Date:2017-12-10 12/08/2017 [facility] [place] [id number] Insurance:UNITED TH BARKERDOB: [address] [id number] [facility] [place] Number: Repository [address]Gvv: 330 [id number] [phone] () Date:6890-27-01QH [address]FJSQ[place]X, [place] [address]PV: 12/08/2017 Secondary NOT GIVENUNK [place] Insurance:SELF PAY [facility] Number: Effective Repository Date:2017-12-08 12/08/2017 [facility] [place] [id number] Insurance:UNITED HLTH BARKERDOB: [facility] [id number] [id number] Number: Repository [address]Qar: (122) [id number] [phone] (HP) Date:3656-31-45ZQ [address]UQJQMXP, [place] [address]HV: 12/08/2017 Secondary NOT GIVENUNK [place] Insurance:SELF PAY [facility] Number: Effective Repository Date:2017-12-08 11/30/2017 DIDI E Primary [facility]: [facility] [id number] [place] [address] [id number] [place] [address] Number: Effective 4 [facility], [place] Date:2017-11-30 - [place], [place] [id number]: [id number]: Name:CD:[id number] BOX () [address] [place] [address] ()Tel: [phone]: (WP) [phone] 11/30/2017 DIDI E Primary Insurance:[address] [place] [address] E [facility] SystemB: [facility] [id number] [facility] [id number] [facility] Number: Effective 4 [facility] Repository [facility], [place] Date:2017-11-30 - [place], [place] [id number]: [id number] [id number]: Name:CD:[id number].OGianfranco (HP) [address] [place] [address] ()Tel: [phone]: [phone]
== END 2018-11-06 11:45 | disposition home or self-care (01) ==
LOC: ED 07:33
PROVIDERS: Emergency Provider Emergency Medicine; Family Provider Nurse Practitioner Family; PCP Nurse Practitioner Family
DX: R10.9 Unspecified abdominal pain (principal); R11.10 Vomiting, unspecified
CPT/HCPCS: 74176; 76817; 80048; 81001; 84702; 84703; 85025; 96361; 96374; 96375; 99282; J7030; A4216; J2405

== ENCOUNTER → 2018-11-23 10:16 | Outpatient (CLI) | payer MEDICAID, SELFPAY ==
[2018-11-23 09:01] VITALS: BMI 29.7
[2018-11-25 20:19] LABS: von Willebrand Factor Activity 52 % (50-200)
[2018-11-26 16:54] LABS: Factor VIII Activity 47 % (57-163); VWD Studies Interp Report Note (.); von Willebrand Factor (vWF) Ag 54 % (50-200)
== END ==
PROVIDERS: Family Provider Nurse Practitioner Family; PCP Nurse Practitioner Family; Visit Provider Nurse Practitioner Women's Health
DX: R10.2 Pelvic and perineal pain (principal); N96 Recurrent pregnancy loss
CPT/HCPCS: 36415; 85240; 85245; 85246; 87070; 87205

== ENCOUNTER → 2018-12-01 12:16 | Outpatient (CLI) | payer MEDICAID, SELFPAY ==
[2018-11-23 09:01] VITALS: BMI 29.7
--- NOTE | 2018-12-01 12:30 | US_ITS ---
History: History of 4 miscarriages with infertility COMPARISON: Ultrasound of the uterus dated 11/06/2018 TECHNIQUE: Saline infused sonohysterogram, exam performed by Dr. Subramanian FINDINGS: There is a mildly hyperechoic polyp in the mid to distal aspect of the endometrium which was adequately fluid-filled. The polyp measures 7 x 8 mm. Remainder of the endometrium with fluid distention is within normal limits. Preprocedure imaging demonstrates thickness of the endometrium measures 6 mm. IMPRESSION: Hyperechoic polyp in the endometrium as above Electronically Signed: Celio Plunkett DO at 11:10 EST Tel , Service support , US/MICHELLE-SALINE INF SONOHYSTEROGRAM
--- NOTE | 2018-12-08 21:00 | PCM.OPRPT ---
Problem List (1) History of recurrent miscarriages Status: Acute Report of Operation Date of Procedure: 12/01/18 Pre-Operative Diagnosis: recurrent miscarriage Post-Operative Diagnosis: same plus posterior submucosal fibroid Surgery/Procedure Performed:: salin infusion sonogram Description of Surgical Findings:: posterior upper submucosal fibroid/polyp visualized Type of Anesthesia:: None Specimen's removed: none Description of Procedure: cervix prepped with betadine and SIS catheter introduced without difficulty, fluid introduced into the cavity and ultrasound performed without diffulty transvaginally. after images were obtained the instruments were all removed without difficulty. patient tolerated the procedure well - Complications none
== END ==
LOC: US 12:17
PROVIDERS: Family Provider Nurse Practitioner Family; PCP Nurse Practitioner Family; Referring Provider Obstetrics & Gynecology; Visit Provider Obstetrics & Gynecology
DX: N97.9 Female infertility, unspecified (principal)
CPT/HCPCS: 58340; 76831

== ENCOUNTER → 2018-12-07 08:25 | Outpatient (CLI) | payer OTHER, SELFPAY ==
[2018-12-01 15:34] VITALS: BMI 29.7
[2018-12-06 11:10] VITALS: BMI 29.3
--- NOTE | 2018-12-07 08:27 | US_ITS ---
STUDY: THYROID ULTRASOUND REASON FOR EXAM: Female, 33 years old. Thyromegaly. TECHNIQUE: Ultrasound evaluation of the thyroid was performed with real-time and static serrano-scale imaging. COMPARISON: None. FINDINGS: RIGHT LOBE: The right lobe of the thyroid gland is enlarged and measures 5.7 cm x 1.9 cm x 1.7 cm. There is a homogeneous echotexture. There are no demonstrated solid, cystic or complex lesions. LEFT LOBE: The left lobe of the thyroid gland measures 4.9 cm x 1.7 cm x 1.0 cm. There is a homogeneous echotexture. There is a 2 mm x 3 mm x 3 mm cyst in the lower pole of the left lobe. ISTHMUS: The isthmus measures 3.0 mm. The regional lymph nodes are normal. US/Thyroid IMPRESSION: Mild enlargement of the right lobe of the thyroid. 2 mm x 3 mm x 3 mm cyst in the lower pole of the left lobe of the thyroid. Electronically Signed: Mele Angel MD at 13:50 EST , Service support ,
== END ==
PROVIDERS: Family Provider Nurse Practitioner Family; PCP Nurse Practitioner Family; Referring Provider Obstetrics & Gynecology; Visit Provider Obstetrics & Gynecology
DX: E01.0 Iodine-deficiency related diffuse (endemic) goiter (principal)
CPT/HCPCS: 76536

== ENCOUNTER 2020-04-20 19:19 | Emergency (ER) | payer MEDICAID, SELFPAY ==
[2018-12-06 11:10] VITALS: BMI 29.3
[2020-04-20 19:20] VITALS: BP 135/83; PULSE 87; RESP 15; TEMP 36.5; O2SAT 97; BMI 30.4
[2020-04-20 20:24] LABS: D-Dimer Quantitative (DVT/PE) 0.97 FEU/ug/m (0.27-0.49)
--- NOTE | 2020-04-20 21:01 | ED.VISSUMM ---
- ER Visit Summary Date of Service: 04/20/20 Chief Complaint: Right thigh pain History of Present Illness: The patient is a 35 F who presents with right thigh pain that began yesterday. Patient states the pain is over the posterior distal thigh. Patient describes her pain is dull. Patient states nothing makes it better or worse. Patient denies any trauma or injury. Patient denies any paresthesias or weakness. Patient is concerned over possible blood clot. Patient has a history of von Willebrand's disease. Patient is approximately 34 weeks . Patient also is a smoker. Physical Examination: Vital signs are stable. Patient is afebrile. Patient is in no acute distress. Oral mucosa is pink and moist. Neck is supple. Trachea is midline. There is no JVD. Heart was regular rate and rhythm. Lungs are clear and equal bilaterally. Abdomen is soft and nontender. Cranial nerves II through XII are intact. There are no focal motor or sensory deficits noted. Extremities are intact. There is no calf tenderness or edema. There is some mild tenderness over the posterior distal right thigh. There is full range of motion of the lower extremities. Pedal pulses are equal bilaterally. Test Results: D-dimer was obtained and was slightly elevated at 0.92. Emergency Department Course and Treatment: Patient was advised that since her d-dimer is slightly elevated she will need to come back tomorrow for an outpatient venous duplex of her right lower extremity to rule out a DVT. Patient was given a dose of Lovenox here. Patient was given an outpatient order for venous duplex to be done tomorrow. Patient understands and is agreeable with the plan. All questions were answered. Disposition: Discharge home Impression: Right lower extremity pain This note was generated with [employer] dictation software. It may contain incorrect words, spelling, and punctuation that were not noted in review of the chart prior to signing ED Disposition - Plan for ED Patient: Disposition: Home or Assisted Living Diagnosis: Pain of right lower extremity Instructions: ED Acute Pain [facility] Referrals: Leeann Alexander NP-C [Primary Care Provider] - 5-7 Days
[2020-04-20 21:18] VITALS: BP 124/72; PULSE 87; RESP 16; O2SAT 99
== END 2020-04-20 21:18 | disposition home or self-care (01) ==
PROVIDERS: Emergency Provider Emergency Medicine; PCP Nurse Practitioner Family
DX: O26.893 Other specified pregnancy related conditions, third trimester (principal); M79.651 Pain in right thigh; O99.113 Other diseases of the blood and blood-forming organs and certain disorders involving the immune mechanism complicating pregnancy, third trimester; D68.0 Von Willebrand disease; Z3A.34 34 weeks gestation of pregnancy
CPT/HCPCS: 85379; 99282; A4216

== ENCOUNTER → 2020-04-23 09:25 | Outpatient (CLI) | payer MEDICAID, SELFPAY ==
[2020-04-20 19:20] VITALS: BMI 30.4
--- NOTE | 2020-04-23 09:26 | VDLE_ITS ---
Reason For Study: Elevated D- Dimer RIGHT LEFT GSV is normal. CFV is compressible, spontaneous, phasic, CFV is compressible, spontaneous, phasic, competent, and demonstrates normal competent and demonstrates normal augmentation. augmentation. FV is compressible, spontaneous, phasic, competent and demonstrates normal augmentation. POP V is compressible, spontaneous, phasic, competent and demonstrates normal augmentation. T/P Trunk is compressible. PTV is compressible. RT PerV is compressible. Procedure Exam performed in department. A preliminary report was called and/or faxed to Leeann Alexander NP. Interpretation Summary There is no evidence of right lower extremity deep vein thrombosis. Right great saphenous vein appears patent and compressible segmentally. Patent and compressible left common femoral vein Ordering Physician: Hussein Brennan Referring Physician: Leeann Alexander Performed By: Ashley Lauren, KEVIN, RVT
== END ==
PROVIDERS: PCP Nurse Practitioner Family; Referring Provider Emergency Medicine; Visit Provider Emergency Medicine
DX: R09.89 Other specified symptoms and signs involving the circulatory and respiratory systems (principal)
CPT/HCPCS: 93971

== ENCOUNTER → 2020-05-16 09:42 | Outpatient (CLI) | payer MEDICAID, SELFPAY ==
[2020-04-20 19:20] VITALS: BMI 30.4
== END ==
PROVIDERS: PCP Nurse Practitioner Family; Visit Provider Advanced Practice Midwife
DX: Z11.59 Encounter for screening for other viral diseases (principal)
CPT/HCPCS: 87635; 94799; U0003

== ENCOUNTER 2020-05-17 19:05 | Inpatient (IN) | payer MEDICAID, SELFPAY ==
[2020-05-17 19:36] VITALS: BP 132/87; PULSE 100; TEMP 37
[2020-05-17 20:18] LABS: Absolute Lymphocyte Count 2.11 X10^3/uL (0.83-4.51); Absolute Neutrophil Count 10.3 X10^3/uL (2.0-7.7); Basophil# 0.02 X10^3/uL; Basophil% 0.2 % (0-1); Eosinophil# 0.08 X10^3/uL; Eosinophils% 0.6 % (0-5); Hematocrit 38.9 % (37-47); Hemoglobin 13.3 g/dL (12.0-15.0); Lymphocyte # 2.11 X10^3/ul (4.0); Mean Corp Hgb Conc 34.2 g/dL (32-36); Mean Corpuscular Hgb 32.4 pg (27.0-32.0); Mean Corpuscular Volume 94.6 fL (81-99); Mean Platelet Vol. 11.8 fl (6.2-12.0); Monocyte% 5.3 % (0-10); NRBC Flagged by Analyzer 0 % (0-5); Neutrophil # 10.25 X10^3/uL (2.7-7.7); Neutrophil % 77.6 % (47-70); Platelet Count 230 K/mm3 (150-450); RBC Distribution Width CV 12.2 % (11.6-14.6); RBC Distribution Width SD 41.7 fl (35.1-43.9); Red Blood Count 4.11 M/mm3 (4.2-5.4); White Blood Count 13.2 K/mm3 (4.4-11.0)
--- NOTE | 2020-05-17 20:31 | PCM.HP.OB ---
- Problem List (1) Advanced maternal age (AMA) in Status: Acute (2) 38 weeks gestation of Status: Acute (3) IUGR (intrauterine growth restriction) Status: Acute (4) Von Willebrand disease Status: Acute History Date of Admission: 05/17/20 Final NARCISA: 05/28/20 Final NARCISA Source: US <20 weeks Gestational age: 38 Weeks and 3 Days History of this : This is a 35 year-old, G [5], P [0040], at 38.3 weeks gestational age that presents of induction of labor for AMA and IUGR. Patient has history of von Willebrand's syndrome with no medications or recent concerns. Patient denies any contractions or loss of fluid. Positive movement. 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 Medical History: Medical History (Last Updated 12/06/18 @ 11:[address] Terrence Lambert MD) Prothrombin gene mutation (Chronic) D68.52 Heterozygous Abnormal coagulation profile (Chronic) R79.1 Abnormal Pap smear of cervix R87.619 Von Willebrand disease D68.0 positive as child Factor 8 type 1 Surgical History: Surgical History (Last Reviewed 12/06/18 @ 16:03 by Bozena Herrera) No history of previous surgery Allergies No Known Allergies Allergy (Verified 04/20/20 19:24) Home Medications: Home Medications No122/Iron/Folic Acid [ Multi Tablet] 1 ea PO DAILY 04/20/20 RX: Acyclovir 400 mg PO TID 05/17/20 Smoking Status: Current every day smoker Number of Fetus(es): 1 NST - FHR Rate Baby A Baseline: 140 Variability:: Moderate Accelerations:: 15 x 15 Decelerations:: None NST Reactive:: Yes FHR Category:: Category I Uterine Activity:: Occasional contractions History Past Pregnancies: Past Pregnancies Delivery Date Name GA/ Weeks Outcome Route Wt Sex Labor Length Anesthesia Delivery Location Provider FOB Labs: A+ Rubella immune Hep B- Hep C- HIV NR RPR NR GBS negative Expected Infant Delivery Method: Spontaneous Vaginal Review of Systems Constitutional: Denies: Chills, Fever Eyes: Denies: Blurred vision HEENT: Denies: Head Aches Cardiovascular: Denies: Chest Pain Respiratory: Denies: Cough, Shortness of Breath Gastrointestinal: Denies: Abdominal Pain Physical Exam Vitals: Vital Signs Temp Pulse BP 98.6 F 100 132/87 H 05/17/20 19:36 05/17/20 19:36 05/17/20 19:36 General: Alert, Oriented x3 Cardiovascular: Regular rate Lungs: Normal air movement Abdomen: Soft, Non Tender, Gravid Neurological: Cranial nerves II-XII grossly intact [employer]ACHINE: Normal external genitalia - No lesions present on inspection Estimated gestational size: Small for gestational age Presentation: Cephalic Cervix Dilation (cm): 0.5 Station: -3 Effacement (%): 60 Assessment/Plan All Active Problems (Last Updated 12/06/18 @ 11:[address] Terrence Lambert MD) History of recurrent miscarriages (Acute) Advanced maternal age (AMA) in (Acute) 38 weeks gestation of (Acute) IUGR (intrauterine growth restriction) (Acute) Von Willebrand disease (Acute) Threatened in first trimester (Acute) Thyromegaly (Acute) This is a 35 year-old, G [5], P [0040], at 38.3 weeks gestational age for induction of labor. Category 1 tracing NST reactive Admit to labor and delivery Routine labs. GBS negative IV fluids per policy Start Cytotec 25 mcg PO every [address] Cadena aware of admission and plan of care and is collaborative physician
[2020-05-17 20:36] VITALS: BP 136/79; PULSE 82
[2020-05-17 20:53] VITALS: BMI 31.1
[2020-05-17 21:04] VITALS: TEMP 36.7
[2020-05-17] MEDS: Lactated Ringers 1,000 ML 50 ML IV (22:11)
[2020-05-17] MEDS: miSOPROStol 25 MCG TABLET PO (22:18)
[2020-05-17 22:45] VITALS: BP 139/82; PULSE 75; TEMP 36.4; O2SAT 99
[2020-05-18] VITALS (52 sets, daily range): BP systolic 116–168; BP diastolic 58–119; PULSE 50–107; RESP 16; TEMP 36.1–37.1; O2SAT 86–100
[2020-05-18] MEDS: miSOPROStol 25 MCG TABLET PO ×2 (02:13→06:13)
--- NOTE | 2020-05-18 07:01 | PCM.PN.OB ---
Patient Problems: Active and Suspected Problems (Last Updated 12/06/18 @ 11:[address] Terrence Lambert MD) Advanced maternal age (AMA) in (Acute) 38 weeks gestation of (Acute) IUGR (intrauterine growth restriction) (Acute) Von Willebrand disease (Acute) Subjective: Patient seen at bedside. Slept some throughout the night but starting to feel contractions. Feeling well this morning, no needs or concerns. Objective: NST Reactive CE: /-3 TOCO- Contractions every 3-5 minutes. Palpate mild and relaxed in between - Physical Exam Vitals/I&O's: Vital Signs Temp Pulse BP Pulse Ox 97.0 F L 69 117/79 99 05/18/20 06:04 05/18/20 06:04 05/18/20 06:04 05/18/20 06:04 Weight: 192 lb 14.472 oz Body Mass Index (BMI) 31.1 Intake and Output for Last 24 Hours 05/16/20 05/17/20 05/18/20 23:59 23:59 23:59 Intake Total 400 / 400 Output Total 100 / 100 100 / 100 Balance 300 / 300 -100 / -100 General: Alert, Oriented x3, Cooperative Lungs: Normal air movement Cardiovascular: Regular rate Abdomen: Soft, Gravid Skin: No rashes Neurological: Cranial nerves II-XII grossly intact Psych/Mental Status: Normal Affect Laboratory Results 05/17/20 19:50: WBC 13.2 H, RBC 4.11 L, Hgb 13.3, Hct 38.9, MCV 94.6, MCH 32.4 H, MCHC 34.2, RDW Std Deviation 41.7, RDW Coeff of Teena 12.2, Plt Count 230, MPV 11.8, Immature Gran % (Auto) 0.300, Neut % (Auto) 77.6 H, Lymph % (Auto) 16.0 L, Bee % (Auto) 5.3, Eos % (Auto) 0.6, Baso % (Auto) 0.2, Absolute Neuts (auto) 10.3 H, Absolute Lymphs (auto) 2.11, Nucleated RBC % 0 05/17/20 19:50: Blood Type Cancelled, A1 Antigen Typing Cancelled, Rho(D) Type Cancelled, Antibody Screen Cancelled 05/17/20 20:26: COVID-19 (MARICARMEN) Negative 05/17/20 20:35: Blood Type A POSITIVE, Antibody Screen NEGATIVE Current Medications Acetaminophen (Tylenol) 325 - 650 mg PO Q4H PRN PRN PRN Reason: Pain Score 1-3/10 Al Hydroxide/Mg Hydroxide (Mylanta Ii) 15 - 30 ml PO Q4H PRN PRN PRN Reason: INDIGESTION Citric Acid/Sodium Citrate (Bicitra) 30 ml PO X1 PRN PRN Reason: Section Fentanyl Citrate (Sublimaze (100mcg Ampule)) 25 - 50 mcg IV Q2H PRN PRN PRN Reason: Pain Score 4-10/10 Lactated Ringer's () 500 mls @ 999 mls/hr IV .Q31M PRN PRN Reason: Epidural Lactated Ringer's () 500 mls @ 999 mls/hr IV .Q31M PRN PRN Reason: Corrective Measures Lactated Ringer's () 1,000 mls @ 50 mls/hr IV .Q20H [facility] Last Admin: 05/17/20 22:11 Dose: 50 mls/hr Documented by: Misoprostol (Cytotec) 25 mcg PO Q4H [facility] Last Admin: 05/18/20 06:13 Dose: 25 mcg Documented by: Ondansetron HCl (Zofran) 4 mg IV Q4H PRN PRN PRN Reason: NAUSEA Prochlorperazine Edisylate (Compazine Iv) 10 mg IV Q6H PRN PRN PRN Reason: NAUSEA Sodium Chloride () 10 - 40 ml IV X1 PRN PRN Reason: SALINE FLUSH Medical Necessity - Tobacco Use Smoking Status: Current every day smoker Assessment/Plan All Active Problems (Last Updated 12/06/18 @ 11:[address] Terrence Lambert MD) History of recurrent miscarriages (Acute) Advanced maternal age (AMA) in (Acute) 38 weeks gestation of (Acute) IUGR (intrauterine growth restriction) (Acute) Von Willebrand disease (Acute) Threatened in first trimester (Acute) Thyromegaly (Acute) at 38.4 here for induction of labor for IUGR and AMA Category 1 tracing Cytotec 25 mcg PO - last dose given at 6am Place ricks bulb this morning Continue present management Anticipate
[2020-05-18] MEDS: 0.9% Normal Saline Single 100 ML IV.SOLN. IY (08:31)
--- NOTE | 2020-05-18 08:48 | PN.OBGYN_ITS ---
Patient Problems: Active and Suspected Problems (Last Updated 12/06/18 @ 11:[address] Terrence Lambert MD) Advanced maternal age (AMA) in (Acute) 38 weeks gestation of (Acute) IUGR (intrauterine growth restriction) (Acute) Von Willebrand disease (Acute) Subjective: Doing well per patient and nursing staff. Resting bed with minimal discomfort. Ate breakfast this morning. Last cytotec dose at 6am. Objective: FHT 150, moderate variability, accels. 1 isolated late deceleration. Current Category 1 TOCO: every 3-5 minutes,minimal Cervix 1.5cm/70%/-2 Brar placed without difficulty, patient tolerated well. - Physical Exam Vitals/I&O's: Vital Signs Temp Pulse BP Pulse Ox 97.4 F L 75 129/66 H 100 05/18/20 08:33 05/18/20 08:34 05/18/20 08:34 05/18/20 08:33 Weight: 192 lb 14.472 oz Body Mass Index (BMI) 31.1 Intake and Output for Last 24 Hours 05/16/20 05/17/20 05/18/20 23:59 23:59 23:59 Intake Total 400 / 400 Output Total 100 / 100 100 / 100 Balance 300 / 300 -100 / -100 Laboratory Results 05/17/20 19:50: WBC 13.2 H, RBC 4.11 L, Hgb 13.3, Hct 38.9, MCV 94.6, MCH 32.4 H , MCHC 34.2, RDW Std Deviation 41.7, RDW Coeff of Teena 12.2, Plt Count 230, MPV 11.8, Immature Gran % (Auto) 0.300, Neut % (Auto) 77.6 H, Lymph % (Auto) 16.0 L, [place] % (Auto) 5.3, Eos % (Auto) 0.6, Baso % (Auto) 0.2, Absolute Neuts (auto) 10.3 H, Absolute Lymphs (auto) 2.11, Nucleated RBC % 0 05/17/20 19:50: Blood Type Cancelled, A1 Antigen Typing Cancelled, Rho(D) Type Cancelled, Antibody Screen Cancelled 05/17/20 20:26: COVID-19 (MARICARMEN) Negative 05/17/20 20:35: Blood Type A POSITIVE, Antibody Screen NEGATIVE Current Medications Acetaminophen (Tylenol) 325 - 650 mg PO Q4H PRN PRN PRN Reason: Pain Score 1-3/10 Al Hydroxide/Mg Hydroxide (Mylanta Ii) 15 - 30 ml PO Q4H PRN PRN PRN Reason: INDIGESTION Citric Acid/Sodium Citrate (Bicitra) 30 ml PO X1 PRN PRN Reason: Section Fentanyl Citrate (Sublimaze (100mcg Ampule)) 25 - 50 mcg IV Q2H PRN PRN PRN Reason: Pain Score 4-10/10 Lactated Ringer's () 500 mls @ 999 mls/hr IV .Q31M PRN PRN Reason: Epidural Lactated Ringer's () 500 mls @ 999 mls/hr IV .Q31M PRN PRN Reason: Corrective Measures Lactated Ringer's () 1,000 mls @ 50 mls/hr IV .Q20H [facility] Last Admin: 05/17/20 22:11 Dose: 50 mls/hr Documented by: Ondansetron HCl (Zofran) 4 mg IV Q4H PRN PRN PRN Reason: NAUSEA Prochlorperazine Edisylate (Compazine Iv) 10 mg IV Q6H PRN PRN PRN Reason: NAUSEA Sodium Chloride () 10 - 40 ml IV X1 PRN PRN Reason: SALINE FLUSH Medical Necessity - Tobacco Use Smoking Status: Current every day smoker Assessment/Plan All Active Problems (Last Updated 12/06/18 @ 11:[address] Terrence Lambert MD) History of recurrent miscarriages (Acute) Advanced maternal age (AMA) in (Acute) 38 weeks gestation of (Acute) IUGR (intrauterine growth restriction) (Acute) Von Willebrand disease (Acute) Threatened in first trimester (Acute) Thyromegaly (Acute) A:Induction of labor, progressing Category 1 FHT P: 1) Continue with active management. Ok to start pitocin 4hrs after last cytotec dose 2) Epidural for pain management upon request 3) collaborative physician.
[2020-05-18] MEDS: Oxytocin 30 units/NS 500 ml 30 UNITS/500 ML IV.SOLN IV (10:11)
--- NOTE | 2020-05-18 12:44 | PN.OBGYN_ITS ---
Patient Problems: Active and Suspected Problems (Last Updated 12/06/18 @ 11:[address] Terrence Lambert MD) Advanced maternal age (AMA) in (Acute) 38 weeks gestation of (Acute) IUGR (intrauterine growth restriction) (Acute) Von Willebrand disease (Acute) Subjective: Doing well, resting in bed. Has been up out of bed walking with contractions. Objective: FHR 150, moderate variability, accels, category 1 TOCO: every 2-3 minutes, mild. Pitocin at 6mu's Cervix: 4cm/80%/-1 AROM clear fluid tolerated well - Physical Exam Vitals/I&O's: Vital Signs Temp Pulse BP Pulse Ox 98.1 F 71 136/80 H 99 05/18/20 11:24 05/18/20 11:25 05/18/20 11:25 05/18/20 11:24 Weight: 192 lb 14.472 oz Body Mass Index (BMI) 31.1 Intake and Output for Last 24 Hours 05/16/20 05/17/20 05/18/20 23:59 23:59 23:59 Intake Total 400 / 400 4.97 / 4.97 Output Total 100 / 100 100 / 100 Balance 300 / 300 -95.03 / -95.03 Laboratory Results 05/17/20 19:50: WBC 13.2 H, RBC 4.11 L, Hgb 13.3, Hct 38.9, MCV 94.6, MCH 32.4 H , MCHC 34.2, RDW Std Deviation 41.7, RDW Coeff of Teena 12.2, Plt Count 230, MPV 11.8, Immature Gran % (Auto) 0.300, Neut % (Auto) 77.6 H, Lymph % (Auto) 16.0 L, [place] % (Auto) 5.3, Eos % (Auto) 0.6, Baso % (Auto) 0.2, Absolute Neuts (auto) 10.3 H, Absolute Lymphs (auto) 2.11, Nucleated RBC % 0 05/17/20 19:50: Blood Type Cancelled, A1 Antigen Typing Cancelled, Rho(D) Type Cancelled, Antibody Screen Cancelled 05/17/20 20:26: COVID-19 (MARICARMEN) Negative 05/17/20 20:35: Blood Type A POSITIVE, Antibody Screen NEGATIVE Current Medications Acetaminophen (Tylenol) 325 - 650 mg PO Q4H PRN PRN PRN Reason: Pain Score 1-3/10 Al Hydroxide/Mg Hydroxide (Mylanta Ii) 15 - 30 ml PO Q4H PRN PRN PRN Reason: INDIGESTION Citric Acid/Sodium Citrate (Bicitra) 30 ml PO X1 PRN PRN Reason: Section Fentanyl Citrate (Sublimaze (100mcg Ampule)) 25 - 50 mcg IV Q2H PRN PRN PRN Reason: Pain Score 4-10/10 Lactated Ringer's () 500 mls @ 999 mls/hr IV .Q31M PRN PRN Reason: Epidural Lactated Ringer's () 500 mls @ 999 mls/hr IV .Q31M PRN PRN Reason: Corrective Measures Lactated Ringer's () 1,000 mls @ 50 mls/hr IV .Q20H [facility] Last Admin: 05/17/20 22:11 Dose: 50 mls/hr Documented by: Oxytocin/Sodium Chloride () 30 units in 500 mls @ 2 mls/hr IV .Q250H [facility] Last Infusion: 05/18/20 12:03 Dose: 6 mls/hr Documented by: Ondansetron HCl (Zofran) 4 mg IV Q4H PRN PRN PRN Reason: NAUSEA Prochlorperazine Edisylate (Compazine Iv) 10 mg IV Q6H PRN PRN PRN Reason: NAUSEA Sodium Chloride () 10 - 40 ml IV X1 PRN PRN Reason: SALINE FLUSH Medical Necessity - Tobacco Use Smoking Status: Current every day smoker Assessment/Plan All Active Problems (Last Updated 12/06/18 @ 11:[address] Terrence Lambert MD) History of recurrent miscarriages (Acute) Advanced maternal age (AMA) in (Acute) 38 weeks gestation of (Acute) IUGR (intrauterine growth restriction) (Acute) Von Willebrand disease (Acute) Threatened in first trimester (Acute) Thyromegaly (Acute) A:Active labor, progressing Category 1 FHT P: 1) Continue with pitocin induction 2) Pain management upon request 3) updated on patient status.
[2020-05-18] MEDS: Lactated Ringers 500 ML 999 ML IV ×2 (13:36→15:56)
[2020-05-18] MEDS: Lactated Ringers 1,000 ML 200 ML IV (15:06)
[2020-05-18] MEDS: 0.9% Saline Lock 10 ML Syringe IV (15:30)
[2020-05-18] MEDS: fentaNYL 100 MCG/2 ML Ampul IV (15:37)
[2020-05-18] MEDS: fentaNYL-bupivacaine (epidural) 100 ML BAG EPIDURAL (16:38)
[2020-05-18] MEDS: Oxytocin 30 units/NS 500 ml 30 UNITS/500 ML IV.SOLN 334 UNITS IV (17:58)
--- NOTE | 2020-05-18 18:30 | PCM.OPRPT ---
Problem List (1) Vaginal delivery Status: Acute (2) Vacuum extractor delivery, delivered Status: Acute (3) Second degree perineal laceration Status: Acute Vaginal Delivery Maternal Presentation: Medically Indicated Induction Method of Induction: Pitocin, Cytotec Medical Reason for Induction: - - iugr Amniotic Membrane Rupture Type: Artificial Amniotic Fluid Description: Clear Final NARCISA: 05/28/20 Final NARCISA Source: US <20 weeks Gestational age: 38 Weeks and 4 Days Date of Procedure: 05/18/20 Pre-Operative Diagnosis: Induction of Labor Post-Operative Diagnosis: Surgery/ Procedure Performed: Vacuum Assisted Vaginal Delivery - Due to heart tones down Type of Anesthesia: Epidural, Local with 1% lidocaine Description of Procedure: Progressed to complete with urge to push. Epidural not effective. Good maternal pushing efforts but difficulty staying focused and controlled breathing. heart tones down to 70-80s. called to hospital but immediate on unit for vacuum extraction to expedite delivery due to heart tones down and maternal pushing efforts decreased. Left mediolateral episiotmy made by and Vacuum applied twice and two pop offs. head to and strong pushing efforts. delivered by al, head delivered with body forthcoming. Placed on maternal abdomen, strong cry. Male, APGARS 8,9. Pitocin started for active 3rd stage management. Cord clamped and cut. Placenta delivered spontaneous intact via pop, 3 vessel cord. Perineum inspected and revealed second degree perineal laceration. Repaired with 1% lidocaine and 3.0 Vicryl Rapide. Well approximated and hemostasis achieved. Planning to breastfeed. Mom and baby stable. Family bonding well. notified of delivery. Presentation: Vertex Placental Delivery Description: Spontaneous Placenta Disposition: [facility] Cord Vessel Description: 3 Vessels Cord Entanglement: None Estimated Blood Loss: 250 ml A gender: Male (1 minute): 8 (5 minute): 9 Episiotomy Description: Left Mediolateral Laceration: Left Mediolateral, 2nd degree Medications given after delivery: IV Pitocin Complications: None
[2020-05-19] VITALS: BP 115/61; PULSE 84; RESP 16; TEMP 36.8
[2020-05-19] MEDS: Acetaminophen 500 MG Tablet 1000 MG PO ×2 (01:29→14:35)
--- NOTE | 2020-05-19 03:48 | PCM.PN.OB ---
Patient Problems: Active and Suspected Problems (Last Updated 12/06/18 @ 11:[address] Terrence Lambert MD) Advanced maternal age (AMA) in (Acute) 38 weeks gestation of (Acute) IUGR (intrauterine growth restriction) (Acute) Von Willebrand disease (Acute) Vaginal delivery (Acute) Vacuum extractor delivery, delivered (Acute) Second degree perineal laceration (Acute) Subjective: Doing well per patient and nursing staff. Ambulating and taking PO without difficulty. Voiding and passing flatus. Pain controlled. Lochia normal. . Planning D/C home tomorrow. - Physical Exam Vitals/I&O's: Vital Signs Temp Pulse Resp BP Pulse Ox 98.2 F 84 16 115/61 98 05/19/20 00:00 05/19/20 00:00 05/19/20 00:00 05/19/20 00:00 05/18/20 18:33 Oxygen Delivery Method Room Air Weight: 192 lb 14.472 oz Body Mass Index (BMI) 31.1 Intake and Output for Last 24 Hours 05/17/20 05/18/20 05/19/20 23:59 23:59 23:59 Intake Total 400 / 400 2714.83 / 2714.83 Output Total 100 / 100 600 / 600 Balance 300 / 300 2114.83 / 2114.83 General: Alert, Oriented x3, Cooperative HEENT: Atraumatic, Normocephalic Neck: Trachea Midline Lungs: Clear to auscultation, Normal air movement, No rhonchi, No wheeze Cardiovascular: Regular rate, Regular Rhythm, No murmurs Abdomen: Bowel Sounds Present, Soft, Non Tender - fundus firm 2 below u Extremities: No edema Psych/Mental Status: Normal Affect, Appropriate Current Medications Acetaminophen (Tylenol) 1,000 mg PO Q8H PRN PRN PRN Reason: Pain Score 1-3/10 Last Admin: 05/19/20 01:29 Dose: 1,000 mg Documented by: Bisacodyl (Dulcolax) 10 mg RECTAL UD PRN PRN Reason: If no BM Dibucaine (Dibucaine) 1 applic TOPICAL TID PRN PRN; Protocol PRN Reason: Discomfort Hydrocortisone (Hytone) 1 applic TOPICAL TID PRN PRN; Protocol PRN Reason: Discomfort Ibuprofen (Motrin) 600 mg PO Q6H PRN PRN PRN Reason: Pain Score 1-3/10 Methylergonovine Maleate (Methergine) 0.2 mg IM X1 PRN PRN Reason: Excess bleeding/uterine atony Ondansetron HCl (Zofran) 4 mg IV Q4H PRN PRN PRN Reason: Nausea Senna/Docusate Sodium (Senokot-S, Es-Colace) 1 - 2 tablet PO DAILY PRN PRN PRN Reason: Constipation Simethicone (Mylicon) 80 mg PO PCHS PRN PRN Reason: Indigestion/Stomach pain Sodium Chloride () 5 - 15 ml IV UD PRN PRN Reason: SALINE FLUSH Medical Necessity - Tobacco Use Smoking Status: Current every day smoker Assessment/Plan All Active Problems (Last Updated 12/06/18 @ 11:[address] Terrence Lambert MD) History of recurrent miscarriages (Acute) Advanced maternal age (AMA) in (Acute) 38 weeks gestation of (Acute) IUGR (intrauterine growth restriction) (Acute) Von Willebrand disease (Acute) Vaginal delivery (Acute) Vacuum extractor delivery, delivered (Acute) Second degree perineal laceration (Acute) Threatened in first trimester (Acute) Thyromegaly (Acute) A: PPD #1 P: 1) Routine care 2) support 3) Pain management 4) Planning D/C home tomorrow
[2020-05-19 04:00] VITALS: BP 116/74; PULSE 87; RESP 16; TEMP 36.6
[2020-05-19 06:44] LABS: Hematocrit 34.8 % (37-47); Mean Corp Hgb Conc 34.5 g/dL (32-36); Mean Corpuscular Hgb 32.5 pg (27.0-32.0); Mean Corpuscular Volume 94.3 fL (81-99); Mean Platelet Vol. 11.6 fl (6.2-12.0); Platelet Count 225 K/mm3 (150-450); RBC Distribution Width CV 12.3 % (11.6-14.6); RBC Distribution Width SD 42.7 fl (35.1-43.9); Red Blood Count 3.69 M/mm3 (4.2-5.4); White Blood Count 14.4 K/mm3 (4.4-11.0)
[2020-05-19 09:40] VITALS: BP 122/76; PULSE 78; RESP 16; TEMP 37
[2020-05-19] MEDS: Ibuprofen 600 MG Tablet PO ×2 (09:47→20:38)
[2020-05-19 14:20] VITALS: BP 122/73; PULSE 73; RESP 16; TEMP 36.8
[2020-05-19 18:30] VITALS: BP 121/82; PULSE 85; RESP 16; TEMP 36.5
[2020-05-19 20:30] VITALS: BP 129/91; PULSE 74; RESP 14; TEMP 36.7
[2020-05-20 02:17] VITALS: BP 114/59; PULSE 74; RESP 14; TEMP 36.3
[2020-05-20] MEDS: Acetaminophen 500 MG Tablet 1000 MG PO (02:23)
[2020-05-20] MEDS: Ibuprofen 600 MG Tablet PO (04:38)
[2020-05-20 08:32] VITALS: BP 110/79; PULSE 80; RESP 16; TEMP 37.3
--- NOTE | 2020-05-20 09:45 | PCM.PN.OB ---
Patient Problems: Active and Suspected Problems (Last Updated 12/06/18 @ 11:[address] Terrence Lambert MD) Advanced maternal age (AMA) in (Acute) 38 weeks gestation of (Acute) IUGR (intrauterine growth restriction) (Acute) Von Willebrand disease (Acute) Vaginal delivery (Acute) Vacuum extractor delivery, delivered (Acute) Second degree perineal laceration (Acute) Subjective: Doing well per nursing and patient. Denies chest pain, shortness of breath, leg pain, or increased bleeding. Lochia normal. Pain controlled. Planning d/c home today. - Physical Exam Vitals/I&O's: Vital Signs Temp Pulse Resp BP Pulse Ox 99.2 F H 80 16 110/79 98 05/20/20 08:32 05/20/20 08:32 05/20/20 08:32 05/20/20 08:32 05/18/20 18:33 Oxygen Delivery Method Room Air Weight: 192 lb 14.472 oz Body Mass Index (BMI) 31.1 Intake and Output for Last 24 Hours 05/18/20 05/19/20 05/20/20 23:59 23:59 23:59 Intake Total 2714.83 / 2714.83 Output Total 600 / 600 Balance 2114.83 / 2114.83 General: Alert, Oriented x3, Cooperative HEENT: Atraumatic, Normocephalic Neck: Trachea Midline Lungs: Clear to auscultation, Normal air movement, No rhonchi, No wheeze Cardiovascular: Regular rate, Regular Rhythm, No murmurs Abdomen: Bowel Sounds Present, Soft - Fundus firm 2 below U Extremities: No edema Neurological: Deep Tendon Reflexes 2+/4 and Symmetrical Psych/Mental Status: Normal Affect, Appropriate Current Medications Acetaminophen (Tylenol) 1,000 mg PO Q8H PRN PRN PRN Reason: Pain Score 1-3/10 Last Admin: 05/20/20 02:23 Dose: 1,000 mg Documented by: Bisacodyl (Dulcolax) 10 mg RECTAL UD PRN PRN Reason: If no BM Dibucaine (Dibucaine) 1 applic TOPICAL TID PRN PRN; Protocol PRN Reason: Discomfort Hydrocortisone (Hytone) 1 applic TOPICAL TID PRN PRN; Protocol PRN Reason: Discomfort Ibuprofen (Motrin) 600 mg PO Q6H PRN PRN PRN Reason: Pain Score 1-3/10 Last Admin: 05/20/20 04:38 Dose: 600 mg Documented by: Methylergonovine Maleate (Methergine) 0.2 mg IM X1 PRN PRN Reason: Excess bleeding/uterine atony Ondansetron HCl (Zofran) 4 mg IV Q4H PRN PRN PRN Reason: Nausea Senna/Docusate Sodium (Senokot-S, Es-Colace) 1 - 2 tablet PO DAILY PRN PRN PRN Reason: Constipation Simethicone (Mylicon) 80 mg PO PCHS PRN PRN Reason: Indigestion/Stomach pain Sodium Chloride () 5 - 15 ml IV UD PRN PRN Reason: SALINE FLUSH Medical Necessity - Tobacco Use Smoking Status: Current every day smoker Assessment/Plan All Active Problems (Last Updated 12/06/18 @ 11:[address] Terrence Lambert MD) History of recurrent miscarriages (Acute) Advanced maternal age (AMA) in (Acute) 38 weeks gestation of (Acute) IUGR (intrauterine growth restriction) (Acute) Von Willebrand disease (Acute) Vaginal delivery (Acute) Vacuum extractor delivery, delivered (Acute) Second degree perineal laceration (Acute) Threatened in first trimester (Acute) Thyromegaly (Acute) A:PPD #2 P: 1) D/C home today. Discharge instructions reviewed 2) Hgb stable 3) VS stable 4) Follow up in 2 weeks and 6 weeks .
--- NOTE | 2020-05-20 09:54 | DCINST_ITS ---
Discharge Diet: No Restrictions Discharge Activity: Return to Normal Activity, May not drive while taking narcotic pain medications., May Shower May resume sexual activity in: 4-6 weeks Weight Bearing Status: Full weight bearing Additional Activity Instructions:: Nothing in the vagina for 4-6 weeks. You may return to work/school in 6 weeks. Call your doctor if your incision/area has: Continuous Slow Oozing, Sudden Increased Bleeding, Increased Pain/ Swelling, Increased Redness, Foul Smelling Discharge Call your doctor if you observe: Fever of 101 or Higher Additional Instructions: If you experience any of the following, contact your healthcare provider. * Bleeding that soaks a pad every hour for 2 hours * Fever 100.4 or higher * Unrelieved incision or abdominal pain * Swelling, redness, discharge or bleeding from your incision or episiotomy site * Your incision begins to separate * Problems urinating (including inability to urinate or burning while ur inating). * Visual changes * Severe headache * Flu-like symptoms * Pain or redness in one of both of your breasts * Pain, warmth, tenderness or swelling in your legs, especially the calf area * Frequent nausea and vomiting * Symptoms of depression or anxiety If you experience any of the following, call 911 or go to the nearest Emergency Room. * Chest pain * Problems breathing * Seizure activity * Partial or complete paralysis of a body part, slurred speech, weakness or drooping of the face, or a sudden inability to walk or hold your balance Allergies/Adverse Reactions: Allergies No Known Allergies Allergy (Verified 04/20/20 19:24) Medications to take at Discharge No122/Iron/Folic Acid [ Multi Tablet] 1 ea PO DAILY 04/20/20 Acyclovir 400 mg PO TID 05/17/20 Ibuprofen [Motrin] 600 mg PO Q6H PRN PRN #30 tab 05/20/20 The following prescriptions were given: Ibuprofen [Motrin] 600 mg PO Q6H PRN PRN #30 tab PRN Reason: Pain Score 1-3/10 Transmission Status: Pending to [id number] Please Follow Up With: Senait Banerjee CNM When: Call to make an appointment with your doctor in 2 weeks and 6 weeks. If you had elevated Blood Pressure or 4th degree laceration you will need to be seen in 2 weeks. Primary Care Physician: Leeann Alexander NP-C [Primary Care Provider] - Test Results: Test results from this visit will be discussed in further detail at your follow- up appointment, if applicable.
== END 2020-05-20 12:10 | disposition home or self-care (01) | DRG 560 ==
PROVIDERS: Advanced Practice Midwife; Admitting Provider Advanced Practice Midwife; PCP Nurse Practitioner Family; Visit Provider Advanced Practice Midwife
DX: O76 Abnormality in fetal heart rate and rhythm complicating labor and delivery (principal); O70.1 Second degree perineal laceration during delivery; O36.5930 Maternal care for other known or suspected poor fetal growth, third trimester, not applicable or unspecified; O99.334 Smoking (tobacco) complicating childbirth; F17.200 Nicotine dependence, unspecified, uncomplicated; D68.0 Von Willebrand disease; O99.12 Other diseases of the blood and blood-forming organs and certain disorders involving the immune mechanism complicating childbirth; O26.23 Pregnancy care for patient with recurrent pregnancy loss, third trimester; Z3A.38 38 weeks gestation of pregnancy; Z37.0 Single live birth
CPT/HCPCS: 59025; 59050; 85025; 85027; 86850; 86900; 86901; 87635; 94799; 99218; J7120; A4216; G0378; U0003

== ENCOUNTER 2022-02-21 19:51 | Emergency (ER) | payer MEDICAID, SELFPAY ==
[2022-02-21 19:51] VITALS: BP 142/87; PULSE 90; RESP 12; TEMP 36.5; O2SAT 98; BMI 28.2
--- NOTE | 2022-02-21 20:07 | EX.ED.VIS.HA ---
HPI History of Present Illness Chief Complaint: Headache Informant: patient Onset/Context/Timing Onset: Today, Yesterday and Hours Context: Gradual Timing: Continuous Quality -Headache: Positive for Similar Prior Headaches Current Severity: Moderate Maximum Severity: Severe Associated Symptoms/Injury Associated Symptoms: Positive for Photophobia; Negative for Fever, Nausea, Vomiting, Sore Throat, Sinus Pressure, Numbness, Tingling, Preceding Aura, Visual Changes, Blurred Vision and Visual Loss Injury - CHAPPELL: Negative for Direct Trauma, Fall and Assault Narrative Narrative: 36-year-old female history of migraine headaches and von Willebrand's disease. States that headache began last night gradual in onset and continued today. She has had headaches like this before just not recently. Denies any fall or head trauma. She denies any nausea or vomiting. No fever. Went to the chiropractor today said she had a lot of stiffness in her back but really did not improve her headache. She denies any numbness or weakness. Prior similar symptoms: Yes Recent Illness/Hospitalization: No PFSH PFSH Medical History Abnormal coagulation profile Abnormal Pap smear of cervix Prothrombin gene mutation Von Willebrand disease Home Medications [id number] acid 1 ea PO DAILY 04/20/20 [History Last Taken 05/17/20] acyclovir 400 mg PO TID 05/17/20 [History Last Taken 05/17/20 18:00] ibuprofen 600 mg PO Q6H PRN PRN #30 tab 05/20/20 [Rx Last Taken Unknown] Allergy/AdvReac Type Severity Reaction Status Date / Time No Known Allergies Allergy Verified 02/21/22 19:53 Family History Mother Diabetes Grandmother Breast cancer Father Colon cancer Surgical History No history of previous surgery Social History Smoking Status: Current every day smoker tobacco type: cigarettes alcohol intake: current details: occasionally substance use type: does not use caffeine: Yes what type of physical activity do you participate in: none frequency: 1-2 times per week seatbelt use: always do you feel safe at home: Yes 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 Review of Systems ROS Unobtainable: Denies due to encephalopathy Constitutional Constitutional ED: Denies fever(s) or subjective Eyes Eyes: Denies change in vision ENT ENT ED: Denies ear pain Cardiovascular Cardiovascular: Denies chest pain or palpitations Respiratory/Chest Respiratory/Chest: Denies cough, dyspnea or sputum Gastrointestinal Gastrointestinal: Denies abdominal pain, diarrhea, nausea or vomiting Genitourinary Genitourinary ED: Denies dysuria or hematuria Musculoskeletal Musculoskeletal: Denies myalgias Integumentary Denies rash Neurologic Neurologic: Reports headache(s); Denies paresthesias or weakness Psychiatric Psychiatric: Denies depression Endocrine Endocrinology: Denies polyuria Hematologic/Lymphatic Hematologic/Lymphatic: Denies easy bruising Allergic/Immunologic Allergic/Immunologic ED: Denies urticaria EXAM Physical Exam Narrative Exam Narrative: 36-year-old female no acute distress. Vital signs are stable afebrile. She does not look septic or toxic. She sitting in a darkened room. H EENT exam pupils round reactive light motions are intact. No facial droop. Normal speech. No signs of trauma to her face or scalp. Neck nontender. Full range of motion. No meningismus. Able to flex and touch chin to chest. Lungs are clear. Heart regular rhythm no murmur. Abdomen soft nontender. Moving all 4 extremities. Neurovascular intact. Normal motor strength and sensation. Normal range of motion. Neurologically she is awake and alert. Fingertip to nose and [id number] within normal limits. NIH score of 0. Const Vital Signs: 02/21/22 19:51 02/21/22 19:55 Temperature 97.7 F L Temperature Source Temporal Pulse Rate 90 Respiratory Rate 12 Blood Pressure 142/87 H Blood Pressure Mean 105 Pulse Ox 98 Oxygen Delivery Method Room Air Room Air Positive well nourished and well developed; Negative for obese, cachectic, contractures or unkempt General Appearance ED: well developed and NAD; Negative for unkempt, cachectic, contractures, cyanotic, diaphoretic or pallor Nutritional Appearance: Negative for cachectic or obese HEENT Reports normocephalic and moist mucous membranes Negative for atraumatic, trauma or tenderness Eyes PERRL and EOMs intact bilaterally General Eye ED: Negative for pale conjunctiva or scleral icterus Neck no lymphadenopathy, supple, no meningeal signs and no JVD General: Negative for tenderness Resp normal respiratory effort and clear to auscultation bilaterally Auscultation: Negative for rales, rhonchi or wheezes Cardio regular rate, regular rhythm, S1 normal heart sound, S2 normal heart sound and no murmurs GI non-tender and non-distended Auscultation: normoactive bowel sounds Palpation: soft; Negative for firm, tender, guarding or rigid Back/Spine no CVA tenderness General Back: Negative for CVA tenderness or tenderness Extremity normal to inspection and full ROM General Extremety ED: Negative for edema or tenderness General Extremity: Negative for edema Neuro oriented x3 Sensorium / Orientation: awake, alert, oriented to person, oriented to place and oriented to time; Negative for orientation impaired, lethargic or stuporous Coordination / Balance: [id number] test normal and [id number] test normal Motor Exam: strength 5/5 throughout; Negative for strength abnormal Psych mental status grossly normal Appearance: Negative for unkempt Attitude: No agitated Mood & Affect: Negative for depressed, anxious or tearful Skin General Skin Exam: Negative for jaundice or pallor Lesions: no lesions Rashes: no rashes MDM MDM MDM Narrative Medical decision making narrative: 36-year-old with a headache with a history of migraines. Neurologic exam normal. Gradual onset. I do not think she needs imaging. She be treated with IV fluids, Toradol, Benadryl and Reglan and reevaluated. Repeat exam at 9:45 PM patient is resting comfortably. Headache is resolving. Neurologic exam remains normal. States she feels much better. Nausea is resolved. She feels comfortable being discharged home. Discharge Plan Triage Chief Complaint: Headache ED Provider: Dimitry Mercedes Dx/Rx/DC Orders Clinical Impression: Headache, migraine, Von Willebrand disease Instructions: ED, Migraine (Classical) Prescriptions: No Action [id number] acid 1 EACH tablet 1 ea PO DAILY RF: 0 acyclovir 400 MG tablet 400 mg PO TID RF: 0 ibuprofen 600 MG tablet 600 mg PO Q6H PRN PRN (Reason: Pain Score 1-3/10) Qty: 30 RF: 0 Primary Care Provider: Leeann Alexander NP Referrals: Leeann Alexander NP, PROGRAM DIRECTOR AIR TALENT-C [Primary Care Provider] - 1-2 Days if not improving Activity Restrictions/Additional Instructions: Plenty of fluids and rest. Tylenol for pain. Follow-up with your primary care provider if not improving return to emergency department if feeling worse. Disposition Disposition: Home, Self Care
[2022-02-21] MEDS: Ketorolac 30 MG/ML Syringe IV (20:11)
[2022-02-21] MEDS: DiphenhydrAMINE 50 MG/ML Syringe 25 MG IV (20:12)
[2022-02-21] MEDS: Metoclopramide 10 MG/2 ML Vial 5 MG IV (20:12)
[2022-02-21] MEDS: 0.9% Normal Saline 1,000 ML 1000 ML IV (20:12)
[2022-02-21 22:05] VITALS: BP 121/74; PULSE 74; RESP 17; O2SAT 99
== END 2022-02-21 22:06 | disposition home or self-care (01) ==
PROVIDERS: Emergency Provider Emergency Medicine; PCP Nurse Practitioner Family; Visit Provider Emergency Medicine
DX: G43.909 Migraine, unspecified, not intractable, without status migrainosus (principal); D68.0 Von Willebrand disease; F17.210 Nicotine dependence, cigarettes, uncomplicated
CPT/HCPCS: 96361; 96374; 96375; 99284; J7030; A4216

== ENCOUNTER 2022-02-23 16:04 | Emergency (ER) | payer MEDICAID, SELFPAY ==
[2022-02-23 16:05] VITALS: BP 142/74; PULSE 71; RESP 18; TEMP 36.2; O2SAT 98; BMI 28.2
--- NOTE | 2022-02-23 16:45 | EKG12_ITS ---
Test Reason : CP Blood Pressure : / mmHG Vent. Rate : 061 BPM Atrial Rate : 061 BPM P-R Int : 176 ms QRS Dur : 076 ms QT Int : 390 ms P-R-T Axes : 054 067 019 degrees QTc Int : 392 ms Normal sinus rhythm Normal ECG Confirmed by JAKOB VILLARREAL, CURTIS ([id number]), editor farm journal NADER MENA ([id number]) on 02/24/2022 1:02:48 PM Referred By: DEWAYNE Confirmed By:CURTIS ROBERT MD
--- NOTE | 2022-02-23 16:45 | RAD_ITS ---
STUDY: X-RAY CHEST REASON FOR EXAM: Female, 36 years old. palpitations TECHNIQUE: AP COMPARISON: None. FINDINGS: EKG leads project over the chest. The lungs are clear and expanded. There is no demonstrated pleural abnormality. Normal size heart. Normal mediastinum and clair. Normal visualized pulmonary arteries. Normal visualized aortic arch and descending thoracic aorta. Normal visualized thoracic spine. Normal visualized ribs, clavicles, and shoulders. There is no demonstrated abnormality of the visualized soft tissue structures of the upper abdomen. RAD/Chest 1 View (Portable) IMPRESSION: Nonacute portable x-ray examination of the chest. Electronically Signed: Reed Jensen MD ([place]oks) at 17:18 EDT ,
--- NOTE | 2022-02-23 16:47 | NURSING ---
NO OLD EKGS
--- NOTE | 2022-02-23 16:48 | EDS_ITS ---
HPI History of Present Illness Chief Complaint: Dizziness Informant: patient Narrative Narrative: 36-year-old female states that she was seen in the [facility] days ago for a migraine. Since going home she is continued have a very slight headache in the right periorbital region. Today she noted that she was feeling very lightheaded at mosque. After mosque she had wavy lines in her right vision that resolved. And she has also been experiencing intermittent palpitations. The palpitations are lasting less than 1 minute. She has no known cardiac issues. No chest pain. PFSH [facility] Medical History Abnormal coagulation profile Abnormal Pap smear of cervix Prothrombin gene mutation Von Willebrand disease Home Medications NK 02/23/22 [History Last Taken Unknown] Allergy/AdvReac Type Severity Reaction Status Date / Time No Known Allergies Allergy Verified 02/23/22 16:05 Family History Mother Diabetes Grandmother Breast cancer Father Colon cancer Surgical History No history of previous surgery Social History Smoking Status: Current every day smoker tobacco type: cigarettes alcohol intake: current details: occasionally substance use type: does not use caffeine: Yes what type of physical activity do you participate in: none frequency: 1-2 times per week seatbelt use: always do you feel safe at home: Yes 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 ROS ROS ED ROS Narrative Lightheadedness Constitutional Constitutional ED: Denies chills, fever(s) or weight loss Eyes Eyes: Reports change in vision; Denies diplopia ENT ENT ED: Denies ear pain, rhinorrhea or sore throat Cardiovascular Cardiovascular: Reports palpitations; Denies chest pain, orthopnea or racing heartbeat Respiratory/Chest Respiratory/Chest: Denies cough, dyspnea or orthopnea Gastrointestinal Gastrointestinal: Denies abdominal pain, diarrhea, nausea or vomiting Genitourinary Genitourinary ED: Denies dysuria, hematuria or urinary frequency Musculoskeletal Musculoskeletal: Denies arthralgias or myalgias Integumentary Denies abscess or rash Neurologic Neurologic: Reports headache(s); Denies weakness Psychiatric Psychiatric: Denies anxiety, depression, suicidal ideation or suicidal thoughts Endocrine Endocrinology: Denies polydipsia, polyphagia or polyuria Allergic/Immunologic Allergic/Immunologic ED: Denies mouth swelling, tongue swelling or urticaria EXAM Physical Exam Const Vital Signs: 02/23/22 16:05 02/23/22 16:17 Temperature 97.2 F L Temperature Source Temporal Pulse Rate 71 Respiratory Rate 18 Respiratory Effort Normal Non-Labored Respiratory Pattern Normal Blood Pressure 142/74 H Blood Pressure Mean 96 Pulse Ox 98 Oxygen Delivery Method Room Air Positive well nourished and well developed General Appearance ED: well developed HEENT Reports normocephalic, head/scalp atraumatic, TM's clear and moist mucous membranes Negative for trauma Tympanic Membrane ED: Yes TM's clear Eyes PERRL and EOMs intact bilaterally Neck no lymphadenopathy, supple and no JVD Resp normal respiratory effort and clear to auscultation bilaterally Cardio regular rate, regular rhythm and no murmurs GI normal to inspection, nondistended, normoactive bowel sounds and non-tender Palpation: soft Back/Spine no CVA tenderness and normal ROM Extremity normal to inspection General Extremety ED: Negative for edema General Extremity: Negative for edema Neuro oriented x3 and CN's II-XII intact bilaterally Sensorium / Orientation: alert Motor Exam: strength 5/5 throughout Psych mental status grossly normal Mood & Affect: Negative for depressed or tearful Skin no rashes or lesions noted and no wounds MDM MDM MDM Narrative Medical decision making narrative: Patient's white blood cell count came back low at 3.2 with platelet count of 231. CMP is normal. Troponin normal magnesium and TSH normal. Potassium is noted to be 3.4. My interpretation of the chest x-ray is no acute process. She has been in a normal sinus rhythm with no ectopy on the monitor. Because of the leukopenia and her symptoms a COVID test was ordered which came back positive. Lab Data Attestation: I reviewed the patient's lab results. Labs: Laboratory Results - last 24 hr 02/23/22 02/23/22 16:55 16:55 WBC 3.2 L RBC 4.68 Hgb 14.7 Hct 43.1 MCV 92.1 MCH 31.4 MCHC 34.1 RDW Std Deviation 43.4 RDW Coeff of Teena 12.8 Plt Count 231 MPV 10.4 Immature Gran % (Auto) 0.000 Neut % (Auto) 40.7 L Lymph % (Auto) 47.9 H Robeson % (Auto) 9.8 Eos % (Auto) 1.3 Baso % (Auto) 0.3 Absolute Neuts (auto) 1.3 L Absolute Lymphs (auto) 1.51 Nucleated RBC % 0 Sodium 141 Potassium 3.4 L Chloride 109 H Carbon Dioxide 27.0 Anion Gap 5 BUN 7 Creatinine 0.79 Estim Creat Clear Calc 92.16 Est GFR (MDRD) Af Amer 105 Est GFR (MDRD) Non-Af 87 BUN/Creatinine Ratio 8.9 L Glucose 96 Calcium 8.4 L Total Bilirubin 0.20 AST 23 ALT 22 Alkaline Phosphatase 65 Troponin I High Sens < 3 L Total Protein 6.6 Albumin 3.6 Globulin 3.0 Albumin/Globulin Ratio 1.2 TSH 0.83 Radiography Diagnostic Testing: Clinical Impression(s) from Imaging Studies Chest X-Ray 02/23/22 16:45 IMPRESSION: Nonacute portable x-ray examination of the chest. Electronically Signed: Reed Jensen MD ([place]) at 17:18 EDT Reading Location ID and State: [facility] / [place] , Service support , EKG Initial EKG: Attestation: I personally reviewed and interpreted this EKG as follows: Comments: Normal sinus rhythm with a ventricular rate of 61 bpm. No concerning features of ACS or ectopy noted. Discharge Plan Triage Chief Complaint: Dizziness ED Provider: Anton Ferguson Dx/Rx/DC Orders Clinical Impression: COVID-19, Palpitations, Headache Instructions: Coronavirus Disease 2019 (COVID-19): Caring for Yourself or Others Prescriptions: No Action NK RF: 0 Primary Care Provider: Leeann Alexander NP Referrals: Leeann Alexander NP, DAMAGE PREVENTION COORDINATOR-C [Primary Care Provider] - As Needed Disposition Disposition: Home, Self Care
[2022-02-23 17:01] LABS: Absolute Lymphocyte Count 1.51 X10^3/uL (0.83-4.51); Absolute Neutrophil Count 1.3 X10^3/uL (2.0-7.7); Basophil# 0.01 X10^3/uL; Basophil% 0.3 % (0-1); Eosinophil# 0.04 X10^3/uL; Eosinophils% 1.3 % (0-5); Hematocrit 43.1 % (37-47); Hemoglobin 14.7 g/dL (12.0-15.0); Lymphocyte # 1.51 X10^3/ul (0.83-4.51); Lymphocyte % 47.9 % (19-41); Mean Corp Hgb Conc 34.1 g/dL (32-36); Mean Corpuscular Hgb 31.4 pg (27.0-32.0); Mean Corpuscular Volume 92.1 fL (81-99); Mean Platelet Vol. 10.4 fl (6.2-12.0); Monocyte# 0.31 X10^3/uL; Monocyte% 9.8 % (0-10); NRBC Flagged by Analyzer 0 % (0-5); Neutrophil # 1.28 X10^3/uL (2.7-7.7); Neutrophil % 40.7 % (47-70); Platelet Count 231 K/mm3 (150-450); RBC Distribution Width CV 12.8 % (11.6-14.6); RBC Distribution Width SD 43.4 fl (35.1-43.9); Red Blood Count 4.68 M/mm3 (4.2-5.4); White Blood Count 3.2 K/mm3 (4.4-11.0)
[2022-02-23 17:25] LABS: ALB/GLOB Ratio 1.2 RATIO (0.9-2.4); AST(SGOT) 23 U/L (15-37); Alanine Aminotransfer ALT/SGPT 22 U/L (13-56); Albumin, Serum 3.6 g/dL (3.2-5.0); Alkaline Phosphatase 65 U/L (45-117); Anion Gap 5 (5-15); BUN 7 mg/dL (7-18); BUN/Creat Ratio 8.9 RATIO (10-20); Calcium,Total 8.4 mg/dL (8.5-10.1); Chloride 109 mmol/L (98-107); Creatinine, Serum 0.79 mg/dL (0.55-1.02); EST Glomerular Filtration Rate 87 mL/min (>60); Est Glom Filt Rate - Afr Amer 105 mL/min (>60); Estimated Creatinine Clearance 92.16 ml/min; Glucose 96 mg/dL (74-106); Potassium 3.4 mmol/L (3.5-5.1); Protein, Total 6.6 g/dL (6.4-8.2); Sodium Level 141 mmol/L (136-145); Thyroid Stim Hormone (TSH) 0.83 uIU/mL (0.358-3.74); Troponin-I HS < 3 pg/mL (3.0-54.0)
== END 2022-02-23 17:56 | disposition home or self-care (01) ==
PROVIDERS: Emergency Provider Emergency Medicine; PCP Nurse Practitioner Family; Visit Provider Emergency Medicine
DX: U07.1 COVID-19 (principal); D68.0 Von Willebrand disease; R00.2 Palpitations; F17.210 Nicotine dependence, cigarettes, uncomplicated; R42 Dizziness and giddiness; R51.9 Headache, unspecified
CPT/HCPCS: 71045; 80053; 84443; 84484; 85025; 87811; 93005; 99284; A4216

== ENCOUNTER 2022-02-27 22:04 | Emergency (ER) | payer MEDICAID, SELFPAY ==
[2022-02-27 22:06] VITALS: BP 138/91; PULSE 88; RESP 14; TEMP 36.4; O2SAT 98; BMI 31.4
[2022-02-27 23:05] VITALS: BP 138/90; PULSE 78; RESP 16
--- NOTE | 2022-02-27 23:27 | EX.ED.DYSGE1 ---
HPI History of Present Illness Chief Complaint: Edema Narrative Narrative: Patient is a 36-year-old female who states that over the past 1 to 2 days she has noticed some increased swelling and pain around the bridge of her nose extending up towards her forehead and eyes. She denies any trauma but does states she will occasionally sleep with her glasses and is unsure if they had rubbed against her skin. She denies any fevers or chills or history of immunosuppression but with the worsening swelling was concerned and therefore comes in for evaluation. [facility] Medical History Abnormal coagulation profile Abnormal Pap smear of cervix Prothrombin gene mutation Von Willebrand disease Home Medications clindamycin HCl 300 mg PO 4X/DAY 10 Days #40 cap 02/27/22 [Rx Last Taken Unknown] Allergy/AdvReac Type Severity Reaction Status Date / Time No Known Allergies Allergy Verified 02/23/22 16:05 Family History Mother Diabetes Grandmother Breast cancer Father Colon cancer Surgical History No history of previous surgery Social History Smoking Status: Current every day smoker tobacco type: cigarettes alcohol intake: current details: occasionally substance use type: does not use caffeine: Yes what type of physical activity do you participate in: none frequency: 1-2 times per week seatbelt use: always do you feel safe at home: Yes additional social history: 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 ROS ROS ED Constitutional Constitutional ED: Denies chills or fever(s) Eyes Eyes: Denies change in vision ENT ENT ED: Denies sore throat Cardiovascular Cardiovascular: Denies chest pain Respiratory/Chest Respiratory/Chest: Denies cough or dyspnea Gastrointestinal Gastrointestinal: Denies abdominal pain, diarrhea, nausea or vomiting Genitourinary Genitourinary ED: Denies dysuria Musculoskeletal Musculoskeletal: Denies myalgias Integumentary Reports abscess Neurologic Neurologic: Denies headache(s) Hematologic/Lymphatic Hematologic/Lymphatic: Denies easy bleeding or easy bruising EXAM Physical Exam Const Vital Signs: 02/27/22 22:06 02/27/22 23:05 Temperature 97.6 F L Temperature Source Temporal Pulse Rate 88 78 Respiratory Rate 14 16 Blood Pressure 138/91 H 138/90 H Blood Pressure Mean 106 Pulse Ox 98 Oxygen Delivery Method Room Air Positive well nourished and well developed General Appearance ED: well developed HEENT HEENT Narrative: Patient has mild edema to the bridge of the nose which extends up into the lower portion of the forehead and out laterally towards the bilateral orbits. At the center of the bridge of the nose is mild erythema and warmth with faint induration consistent with early abscess. No lymphangitic streaking or active discharge present. Eyes PERRL and EOMs intact bilaterally Neck supple Neck Narrative: Positive anterior cervical lymphadenopathy noted Resp normal respiratory effort and clear to auscultation bilaterally Cardio regular rate and regular rhythm Extremity normal to inspection Neuro oriented x3 and CN's II-XII intact bilaterally Sensorium / Orientation: alert Motor Exam: strength 5/5 throughout Psych mental status grossly normal Skin Skin Narrative: Soft tissue changes to the face as document above concerning for early abscess MDM MDM MDM Narrative Medical decision making narrative: Patient presented to the ER mildly hypertensive otherwise with stable vitals. The exam shows soft tissue swelling with faint erythema at the bridge of the nose extending towards other portions of the face. This is most consistent with prone plan with Tory marker/changes from early abscess. I do not believe she would benefit from incision and drainage at this time as the area is just mildly swollen. Therefore she will be given antibiotics advised return to the ER if symptoms worsen. Discharge Plan Triage Chief Complaint: Edema Other Complaint: Cellulitis ED Provider: Rashawn Cook Dx/Rx/DC Orders Clinical Impression: Abscess of face Instructions: ED Abscess Antibiotic Treatment Only Prescriptions: New clindamycin HCl 300 mg capsule 300 mg PO 4X/DAY 10 Days Qty: 40 RF: 0 Primary Care Provider: Leeann Alexander NP Referrals: Leeann Alexander SHIP MATE, SHIP MATE-C [Primary Care Provider] - Activity Restrictions/Additional Instructions: If you develop a fever over 100.4 or the abscess/infection increases by a large degree in a short timeframe please return to the ER for repeat evaluation. Disposition Disposition: Home, Self Care Discharge Date/Time: 02/27/22 23:38
[2022-02-27] MEDS: Clindamycin HCl 150 MG Capsule 300 MG PO (23:36)
== END 2022-02-27 23:38 | disposition home or self-care (01) ==
PROVIDERS: Emergency Provider Emergency Medicine; PCP Nurse Practitioner Family; Visit Provider Emergency Medicine
DX: L02.01 Cutaneous abscess of face (principal); D68.0 Von Willebrand disease; F17.210 Nicotine dependence, cigarettes, uncomplicated
CPT/HCPCS: 99283